=== PATIENT | female | born 1940 | race Caucasian/White ===

== ENCOUNTER 2017-06-27 17:52 | Emergency (ER) | payer MEDICARE, OTHER ==
[~2017-06-27] VITALS: Ht 185.4 cm; Wt 81.6 kg
[~2017-06-27 17:52] MED LIST: ASPI-231 PO; ESOM20CA PO; METO50TA7 PO; MULTTAB61 PO; ROSU10TA16 PO; SULF-35 PO; VEN75XRT PO
[2017-06-27 19:45] VITALS: BP 117/76
[2017-06-27] MEDS ORDERED: KETOROLAC TROMETH 30 MG/ML 1ML VIAL IM ONE (19:45)
[2017-06-27] MEDS ORDERED: KETOROLAC TROMETH 30 MG/ML 1ML VIAL IV ONE (19:45)
[2017-06-27] MEDS ORDERED: HYDROcodone-ACET 5/325MG TAB PO ONE (19:45)
[2017-06-27] MEDS ORDERED: KETOROLAC TROMETH 30 MG/ML 1ML VIAL ONE (19:48)
[2017-06-27] MEDS ORDERED: HYDROcodone-ACET 5/325MG TAB ONE (19:48)
== END 2017-06-27 21:35 | disposition home or self-care (01) ==
LOC: EDBD 17:52 → ER 18:03
DX: S52.591A Other fractures of lower end of right radius, initial encounter for closed fracture (principal); I10 Essential (primary) hypertension; K21.9 Gastro-esophageal reflux disease without esophagitis; F41.9 Anxiety disorder, unspecified; E78.5 Hyperlipidemia, unspecified; W19.XXXA Unspecified fall, initial encounter; Y93.89 Activity, other specified; Y92.89 Other specified places as the place of occurrence of the external cause; Y99.8 Other external cause status; Z79.82 Long term (current) use of aspirin; Z88.1 Allergy status to other antibiotic agents; Z88.2 Allergy status to sulfonamides
CPT/HCPCS: 29125; 73110; 96374; 99284; J1885

== ENCOUNTER 2017-06-30 08:44 | Emergency (ER) | payer MEDICARE, OTHER ==
[~2017-06-30] VITALS: Ht 185.4 cm; Wt 106.6 kg
[2017-06-30 10:45] VITALS: BP 122/74
== END 2017-06-30 11:08 | disposition home or self-care (01) ==
LOC: ER 08:44
DX: S40.012A Contusion of left shoulder, initial encounter (principal); K21.9 Gastro-esophageal reflux disease without esophagitis; I10 Essential (primary) hypertension; E78.5 Hyperlipidemia, unspecified; Z88.1 Allergy status to other antibiotic agents; Z88.2 Allergy status to sulfonamides; Z79.82 Long term (current) use of aspirin; W19.XXXA Unspecified fall, initial encounter; Y93.89 Activity, other specified; Y92.481 Parking lot as the place of occurrence of the external cause; Y99.8 Other external cause status
CPT/HCPCS: 73030; 93005

== ENCOUNTER → 2017-06-30 | Outpatient (CLI) | payer MEDICARE, OTHER ==
[2017-06-30 09:20] LABS: Basophils # (auto) 0.1 uL; Eosinophils # (auto) 0.1 uL; Eosinophils % (auto) 1.4 % (0.0-7.0); Hematocrit 40.2 % (36.0-46.0); Hemoglobin 13.5 g/dL (12.2-16.2); Lymphocytes # (auto) 1.2 uL; Lymphocytes % (auto) 18.1 % (10.0-50.0); Mean Corpuscular Hemoglobin 31.4 pg (28.0-32.0); Mean Corpuscular Hgb Conc. 33.5 g/dL (32.0-36.0); Mean Corpuscular Volume 93.9 fL (80.0-100.0); Monocytes # (auto) 0.5 uL; Monocytes % (auto) 7.9 % (0.0-12.0); Neutrophils # (auto) 4.6 uL; Neutrophils % (auto) 71.6 % (37.0-80.0); Platelet Count (auto) 221 10^3/uL (140-450); Red Blood Cells 4.28 10^6/uL (4.0-5.20); Red Cell Distribution Width 13.4 % (11.8-14.3); White Blood Cell 6.5 10^3/uL (4.4-10.8)
[2017-06-30 09:33] LABS: INR 1.04 (0.9-1.15); Partial Thromboplastin Time 28.4 sec (22.64-33.71); Prothrombin Time 11.3 sec (9.37-12.3)
[2017-06-30 09:37] LABS: Albumin 3.3 g/dL (3.4-5.0); BUN/Creatinine Ratio 23.3; Bilirubin, Total 0.3 mg/dL (0.2-1.0); Calcium 8.6 mg/dL (8.5-10.1); Potassium 3.8 mmol/L (3.5-5.1); Total Protein 7.1 g/dL (6.4-8.2)
[2017-06-30 10:31] LABS: Urine Bacteria FEW /hpf (None Seen); Urine Blood Negative /uL (Negative); Urine Mucus FEW (None Seen); Urine Specific Gravity 1.022 (1.001-1.035); Urine WBC 36 /hpf (0 - 5)
== END | disposition home or self-care (01) ==
LOC: LAB 08:31
PROVIDERS: ATTEND Orthopaedic Surgery
DX: S52.591A Other fractures of lower end of right radius, initial encounter for closed fracture (principal); Z79.01 Long term (current) use of anticoagulants; X58.XXXA Exposure to other specified factors, initial encounter; Y93.89 Activity, other specified; Y92.89 Other specified places as the place of occurrence of the external cause; Y99.8 Other external cause status
CPT/HCPCS: 36415; 80053; 81001; 85025; 85610; 85730

== ENCOUNTER 2018-02-19 20:21 | Inpatient (IN) | payer MEDICARE, OTHER ==
[~2018-02-19] VITALS: Ht 185.4 cm; Wt 112.5 kg
[~2018-02-19 20:21] MED LIST changes: +MET5XLT PO; -METO50TA7 PO
[2018-02-19] MEDS ORDERED: HYDROcodone-ACET 10/325MG TAB PO ONE (22:45)
[2018-02-19 22:54] LABS: Basophils # (auto) 0.1 uL; Basophils % (auto) 0.6 % (0.0-2.0); Eosinophils # (auto) 0 uL; Eosinophils % (auto) 0.2 % (0.0-7.0); Hematocrit 45.4 % (36.0-46.0); Hemoglobin 14.7 g/dL (12.2-16.2); Lymphocytes # (auto) 1.1 uL; Lymphocytes % (auto) 7.2 % (10.0-50.0); Mean Corpuscular Hemoglobin 30.4 pg (28.0-32.0); Mean Corpuscular Hgb Conc. 32.5 g/dL (32.0-36.0); Mean Corpuscular Volume 93.7 fL (80.0-100.0); Monocytes # (auto) 0.7 uL; Neutrophils # (auto) 12.6 uL; Platelet Count (auto) 216 10^3/uL (140-450); Red Blood Cells 4.84 10^6/uL (4.0-5.20); Red Cell Distribution Width 13.9 % (11.8-14.3); White Blood Cell 14.5 10^3/uL (4.4-10.8)
[2018-02-19 23:10] LABS: Alanine Aminotransferase 26 U/L (13-56); Albumin 3.4 g/dL (3.4-5.0); Anion Gap 10 (5-15); Aspartate Aminotransferase 21 U/L (15-37); Blood Urea Nitrogen 18 mg/dL (7-18); Calcium 8.6 mg/dL (8.5-10.1); Carbon Dioxide 25 mmol/L (21-32); Chloride 107 mmol/L (98-107); GFR African American 87 mL/min; GFR Non-African American 72 mL/min; Glucose 96 mg/dL (74-106); Potassium 3.8 mmol/L (3.5-5.1); Sodium 142 mmol/L (136-145)
[2018-02-19 23:19] LABS: Alkaline Phosphatase 96 U/L (45-117); Bilirubin, Total 0.5 mg/dL (0.2-1.0); Total Protein 7.4 g/dL (6.4-8.2)
[2018-02-20] MEDS ORDERED: MEPERIDINE HCL (50 MG/ML) 1 ML VIAL IV ONE ×2 (00:15→05:45)
[2018-02-20] MEDS ORDERED: ONDANSETRON HCL 4 MG/2 ML VIAL IV ONE (00:15)
[2018-02-20] MEDS ORDERED: IOHEXOL 300 MG/ML 100ML BOTTLE IJ ONE (04:27)
[2018-02-20] MEDS ORDERED: LORazepam 2MG/ML-1ML VIAL IV ONE (05:00)
[2018-02-20] MEDS ORDERED: diphenhdrAMINE HCL 50 MG/1 ML VL IV ONE (05:00)
[2018-02-20] MEDS: SODIUM CHLORIDE 0.9% 1,000 ML IV SCH ×2 (08:11→21:45)
[2018-02-20] MEDS ORDERED: MORPHINE SULF INJ 2 MG/ML SYRINGE 1ML IV PRN (08:15)
[2018-02-20] MEDS ORDERED: LORazepam 0.5 MG TAB PO PRN (08:15)
[2018-02-20] MEDS ORDERED: LACTULOSE 20Gm/30ML SOLN PO PRN (08:15)
[2018-02-20] MEDS ORDERED: NITROGLYCERIN 0.4 MG SL TAB SL PRN (08:15)
[2018-02-20] MEDS ORDERED: HYDROcodone-ACET 5/325MG TAB PO PRN (08:15)
[2018-02-20] MEDS ORDERED: PROMETHAZINE HCL 25 MG/ML 1ML IV PRN (08:15)
[2018-02-20] MEDS ORDERED: ACETAMINOPHEN 500 MG TAB PO PRN (08:15)
[2018-02-20] MEDS ORDERED: METOPROLOL SUCCINATE XL 50 MG TAB PO SCH (10:00)
[2018-02-20] MEDS ORDERED: PATIENTS OWN MEDICATION (Rosuvastatin Calcium (Crestor) 1 TAB) PO SCH (10:00)
[2018-02-20] MEDS ORDERED: PATIENTS OWN MEDICATION (Venlafaxine Hydrochloride (Effexor Xr) 1 CAP) PO SCH (10:00)
[2018-02-20] MEDS: MORPHINE SULFATE 4 MG/ML SYR/VIAL IV PRN ×3 (10:05→21:46)
[2018-02-20 10:30] VITALS: BP 104/58
[2018-02-20 10:44] VITALS: BP 104/58
[2018-02-20] MEDS: VENLAFAXINE HCL 37.5mg XR cap PO SCH (11:00)
[2018-02-20] MEDS ORDERED: RIVA20TA PO (11:00)
[2018-02-20] MEDS ORDERED: METO25TA62 PO (11:00)
[2018-02-20] MEDS ORDERED: ATOR10TA52 PO (11:00)
[2018-02-20] MEDS: MULTIPLE VITAMIN TAB PO SCH (11:00)
[2018-02-20] MEDS: PANTOPRAZOLE 40 MG TAB PO SCH (11:00)
[2018-02-20 13:00] VITALS: BP 109/47
[2018-02-20 17:00] VITALS: BP 140/67
[2018-02-20 20:28] LABS: INR 1.05 (0.9-1.15); Partial Thromboplastin Time 31.7 sec (23.78-33.04); Prothrombin Time 11.2 sec (9.27-12.13)
[2018-02-20] MEDS: ATORVASTATIN 20 MG TAB PO SCH (21:45)
[2018-02-21] MEDS: MORPHINE SULFATE 4 MG/ML SYR/VIAL IV PRN (02:40)
[2018-02-21] MEDS: SODIUM CHLORIDE 0.9% 1,000 ML IV SCH ×2 (04:11→08:50)
[2018-02-21 05:00] VITALS: BP 122/64
[2018-02-21 06:09] LABS: Basophils # (auto) 0.1 uL; Basophils % (auto) 0.8 % (0.0-2.0); Eosinophils # (auto) 0.1 uL; Eosinophils % (auto) 0.7 % (0.0-7.0); Hematocrit 37.1 % (36.0-46.0); Hemoglobin 12.7 g/dL (12.2-16.2); Lymphocytes # (auto) 1.1 uL; Lymphocytes % (auto) 14.7 % (10.0-50.0); Mean Corpuscular Hemoglobin 32.2 pg (28.0-32.0); Mean Corpuscular Hgb Conc. 34.2 g/dL (32.0-36.0); Mean Corpuscular Volume 94.3 fL (80.0-100.0); Monocytes # (auto) 0.7 uL; Monocytes % (auto) 9.9 % (0.0-12.0); Neutrophils # (auto) 5.3 uL; Neutrophils % (auto) 73.9 % (37.0-80.0); Platelet Count (auto) 173 10^3/uL (140-450); Red Blood Cells 3.93 10^6/uL (4.0-5.20); Red Cell Distribution Width 13.9 % (11.8-14.3); White Blood Cell 7.2 10^3/uL (4.4-10.8)
[2018-02-21 06:22] LABS: INR 1.04 (0.9-1.15); Partial Thromboplastin Time 31.5 sec (23.78-33.04); Prothrombin Time 11.1 sec (9.27-12.13)
[2018-02-21 06:31] LABS: Albumin 2.5 g/dL (3.4-5.0); BUN/Creatinine Ratio 16.4; Calcium 7.7 mg/dL (8.5-10.1); Potassium 4.1 mmol/L (3.5-5.1)
[2018-02-21 06:33] LABS: Bilirubin, Total 0.9 mg/dL (0.2-1.0); Total Protein 5.7 g/dL (6.4-8.2)
[2018-02-21 09:00] VITALS: BP 109/58
[2018-02-21] MEDS: MULTIPLE VITAMIN TAB PO SCH (10:47)
[2018-02-21] MEDS: VENLAFAXINE HCL 37.5mg XR cap PO SCH (10:47)
[2018-02-21] MEDS: PANTOPRAZOLE 40 MG TAB PO SCH (10:47)
[2018-02-21] MEDS ORDERED: FUROSEMIDE 20 MG/2 ML VIAL IV ONE (11:30)
[2018-02-21] MEDS ORDERED: POTASSIUM CHL 10 Meq TABLET PO ONE (11:30)
[2018-02-21 11:56] LABS: INR 1.04 (0.9-1.15); Partial Thromboplastin Time 32.1 sec (23.78-33.04); Prothrombin Time 11.1 sec (9.27-12.13)
[2018-02-21 13:00] VITALS: BP 115/66
[2018-02-21 17:00] VITALS: BP 117/64
[2018-02-21] MEDS: MORPHINE SULF INJ 2 MG/ML SYRINGE 1ML IV PRN (20:21)
[2018-02-21] MEDS: ATORVASTATIN 20 MG TAB PO SCH (20:21)
[2018-02-21 22:00] VITALS: BP 122/68
[2018-02-21] MEDS: TEMAZEPAM 15 MG CAP PO PRN (22:00)
[2018-02-22] MEDS: MORPHINE SULF INJ 2 MG/ML SYRINGE 1ML IV PRN ×4 (01:42→22:02)
[2018-02-22 05:46] VITALS: BP 134/71
[2018-02-22 08:00] VITALS: BP 137/73
[2018-02-22] MEDS: VENLAFAXINE HCL 37.5mg XR cap PO SCH (10:28)
[2018-02-22] MEDS: MULTIPLE VITAMIN TAB PO SCH (10:29)
[2018-02-22] MEDS: PANTOPRAZOLE 40 MG TAB PO SCH (10:29)
[2018-02-22 13:00] VITALS: BP 132/72
[2018-02-22] MEDS ORDERED: diphenhdrAMINE HCL 50 MG/1 ML VL IV PRN (15:15)
[2018-02-22 17:00] VITALS: BP 118/77
[2018-02-22 22:00] VITALS: BP 122/65
[2018-02-22] MEDS: TEMAZEPAM 15 MG CAP PO PRN (22:02)
[2018-02-22] MEDS: ATORVASTATIN 20 MG TAB PO SCH (22:02)
[2018-02-23] MEDS: MORPHINE SULF INJ 2 MG/ML SYRINGE 1ML IV PRN ×2 (04:27→14:17)
[2018-02-23 05:38] VITALS: BP 137/78
[2018-02-23 08:55] VITALS: BP 114/68
[2018-02-23] MEDS: VENLAFAXINE HCL 37.5mg XR cap PO SCH (09:45)
[2018-02-23] MEDS: MULTIPLE VITAMIN TAB PO SCH (09:45)
[2018-02-23] MEDS: PANTOPRAZOLE 40 MG TAB PO SCH (09:45)
[2018-02-23 11:53] VITALS: BP 100/56
== END 2018-02-23 15:30 | DRG 965 ==
LOC: ER 20:21 → TELE 20:22 → TELE-CENTR 02-20 10:28
PROVIDERS: ADMIT Internal Medicine; ATTEND Family Medicine
DX: S32.591A Other specified fracture of right pubis, initial encounter for closed fracture (principal); S36.892A Contusion of other intra-abdominal organs, initial encounter; E66.9 Obesity, unspecified; E89.0 Postprocedural hypothyroidism; E78.5 Hyperlipidemia, unspecified; F41.9 Anxiety disorder, unspecified; I10 Essential (primary) hypertension; I34.1 Nonrheumatic mitral (valve) prolapse; I45.10 Unspecified right bundle-branch block; I48.0 Paroxysmal atrial fibrillation; K21.9 Gastro-esophageal reflux disease without esophagitis; W18.39XA Other fall on same level, initial encounter; Y92.89 Other specified places as the place of occurrence of the external cause; M16.11 Unilateral primary osteoarthritis, right hip; Y93.89 Activity, other specified; Z82.49 Family history of ischemic heart disease and other diseases of the circulatory system; Z85.3 Personal history of malignant neoplasm of breast; Z79.899 Other long term (current) drug therapy; Z90.49 Acquired absence of other specified parts of digestive tract; Z88.2 Allergy status to sulfonamides; Z88.1 Allergy status to other antibiotic agents; Z79.82 Long term (current) use of aspirin; Z68.32 Body mass index [BMI] 32.0-32.9, adult
CPT/HCPCS: 36415; 51702; 71045; 73700; 74177; 80053; 83880; 84443; 84484; 85025; 85610; 85730; 87086; 93005; 93306; 94761; 96361; 96374; 96375; 96376; A6257; J2405

== ENCOUNTER 2018-02-25 00:42 | Inpatient (IN) | payer MEDICARE, OTHER ==
[~2018-02-25] VITALS: Ht 185.4 cm; Wt 123.4 kg
[~2018-02-25 00:42] MED LIST changes: -ASPI-231 PO; +ATOR10TA52 PO; -ESOM20CA PO; -MET5XLT PO; +METO25TA62 PO; +RIVA20TA PO; -ROSU10TA16 PO; -SULF-35 PO
[2018-02-25 01:40] LABS: Basophils # (auto) 0.1 uL; Basophils % (auto) 0.7 % (0.0-2.0); Eosinophils # (auto) 0 uL; Eosinophils % (auto) 0.1 % (0.0-7.0); Hematocrit 39.2 % (36.0-46.0); Hemoglobin 12.9 g/dL (12.2-16.2); Lymphocytes # (auto) 0.6 uL; Lymphocytes % (auto) 6.2 % (10.0-50.0); Mean Corpuscular Hemoglobin 30.9 pg (28.0-32.0); Mean Corpuscular Volume 93.8 fL (80.0-100.0); Monocytes # (auto) 0.6 uL; Monocytes % (auto) 5.5 % (0.0-12.0); Neutrophils # (auto) 8.8 uL; Neutrophils % (auto) 87.5 % (37.0-80.0); Platelet Count (auto) 252 10^3/uL (140-450); Red Blood Cells 4.18 10^6/uL (4.0-5.20); Red Cell Distribution Width 13.6 % (11.8-14.3)
[2018-02-25 01:53] LABS: Alanine Aminotransferase 16 U/L (13-56); Albumin 2.6 g/dL (3.4-5.0); Anion Gap 12 (5-15); Aspartate Aminotransferase 17 U/L (15-37); BUN/Creatinine Ratio 26.2; Blood Urea Nitrogen 16 mg/dL (7-18); Calcium 8.1 mg/dL (8.5-10.1); Carbon Dioxide 23 mmol/L (21-32); Chloride 106 mmol/L (98-107); GFR African American 122 mL/min; GFR Non-African American 101 mL/min; Glucose 143 mg/dL (74-106); Potassium 3.7 mmol/L (3.5-5.1); Sodium 141 mmol/L (136-145)
[2018-02-25 01:58] LABS: Alkaline Phosphatase 81 U/L (45-117); Bilirubin, Total 0.9 mg/dL (0.2-1.0); Total Protein 6.5 g/dL (6.4-8.2)
[2018-02-25 02:00] LABS: INR 1.02 (0.9-1.15); Partial Thromboplastin Time 29.2 sec (23.78-33.04); Prothrombin Time 10.9 sec (9.27-12.13)
[2018-02-25] MEDS ORDERED: ONDANSETRON HCL 4 MG/2 ML VIAL IV ONE ×2 (02:15→06:30)
[2018-02-25] MEDS ORDERED: MORPHINE SULFATE 4 MG/ML SYR/VIAL IV ONE (02:15)
[2018-02-25] MEDS ORDERED: IOHEXOL 350 MG/ML 100ML IJ ONE (04:17)
[2018-02-25] MEDS ORDERED: TEMAZEPAM 15 MG CAP PO PRN (06:45)
[2018-02-25] MEDS ORDERED: ONDANSETRON HCL 4 MG/2 ML VIAL IV PRN (06:45)
[2018-02-25] MEDS ORDERED: NITROGLYCERIN 0.4 MG SL TAB SL PRN (06:45)
[2018-02-25] MEDS ORDERED: MORPHINE SULF INJ 2 MG/ML SYRINGE 1ML IV PRN (06:45)
[2018-02-25] MEDS: VENLAFAXINE HCL 37.5mg XR cap PO SCH (08:27)
[2018-02-25] MEDS: ASPirin 81 mg TAB PO SCH (08:27)
[2018-02-25] MEDS: FAMOTIDINE 20 MG TAB PO SCH ×2 (08:28→22:06)
[2018-02-25] MEDS: METOPROLOL TARTRATE 25 MG TAB PO SCH ×2 (08:28→22:06)
[2018-02-25] MEDS ORDERED: PATIENTS OWN MEDICATION (xarelto 20 MG) PO SCH (10:00)
[2018-02-25] MEDS: HYDROcodone-ACET 5/325MG TAB PO PRN ×3 (10:29→20:47)
[2018-02-25 12:21] LABS: Urine Bacteria FEW /hpf (None Seen); Urine Blood 2+ /uL (Negative); Urine Mucus FEW (None Seen); Urine Specific Gravity 1.046 (1.001-1.035); Urine WBC 354 /hpf (0 - 5)
[2018-02-25] MEDS: MEROPENEM 1gm/20ml IVPUSH 20 ML IV SCH ×2 (14:06→22:06)
[2018-02-25] MEDS: DOCUSATE SOD 100 MG CAP PO PRN (15:27)
[2018-02-25] MEDS: RIVAROXABAN 20 MG TAB PO SCH (18:12)
[2018-02-25 20:02] VITALS: BP 125/69
[2018-02-25 20:10] VITALS: BP 125/69
[2018-02-25] MEDS: ATORVASTATIN 20 MG TAB PO SCH (22:06)
[2018-02-26] MEDS ORDERED: ACET-1158 PO (04:07)
[2018-02-26] MEDS ORDERED: AMIO200T33 PO (04:08)
[2018-02-26 05:00] VITALS: BP 112/53
[2018-02-26] MEDS: MEROPENEM 1gm/20ml IVPUSH 20 ML IV SCH ×3 (05:50→21:43)
[2018-02-26 07:41] LABS: Basophils # (auto) 0.1 uL; Basophils % (auto) 0.6 % (0.0-2.0); Eosinophils # (auto) 0 uL; Eosinophils % (auto) 0.1 % (0.0-7.0); Hemoglobin 13.4 g/dL (12.2-16.2); Lymphocytes # (auto) 0.3 uL; Lymphocytes % (auto) 2.3 % (10.0-50.0); Mean Corpuscular Hemoglobin 31.7 pg (28.0-32.0); Mean Corpuscular Hgb Conc. 33.5 g/dL (32.0-36.0); Mean Corpuscular Volume 94.6 fL (80.0-100.0); Monocytes # (auto) 0.8 uL; Monocytes % (auto) 5.3 % (0.0-12.0); Neutrophils # (auto) 13.6 uL; Neutrophils % (auto) 91.7 % (37.0-80.0); Platelet Count (auto) 242 10^3/uL (140-450); Red Blood Cells 4.22 10^6/uL (4.0-5.20); Red Cell Distribution Width 13.7 % (11.8-14.3); White Blood Cell 14.8 10^3/uL (4.4-10.8)
[2018-02-26 08:00] VITALS: BP 99/54
[2018-02-26 08:00] LABS: Albumin 2.3 g/dL (3.4-5.0); BUN/Creatinine Ratio 27.3; Bilirubin, Total 1.1 mg/dL (0.2-1.0); Calcium 8.2 mg/dL (8.5-10.1); Potassium 3.5 mmol/L (3.5-5.1); Total Protein 6.3 g/dL (6.4-8.2)
[2018-02-26 08:35] VITALS: BP 99/54
[2018-02-26] MEDS: METOPROLOL TARTRATE 25 MG TAB PO SCH ×2 (10:00→21:45)
[2018-02-26] MEDS: ASPirin 81 mg TAB PO SCH (10:00)
[2018-02-26] MEDS: VENLAFAXINE HCL 37.5mg XR cap PO SCH (10:15)
[2018-02-26] MEDS: FAMOTIDINE 20 MG TAB PO SCH ×2 (10:17→21:42)
[2018-02-26] MEDS: ACETAMINOPHEN 325 MG TAB PO PRN ×2 (11:59→19:59)
[2018-02-26 12:55] VITALS: BP 118/57
[2018-02-26] MEDS ORDERED: fentaNYL CITRATE 5 ML ONE (13:17)
[2018-02-26] MEDS ORDERED: ROCURONIUM 10MG/ML 10ML VIAL IV ONE (13:17)
[2018-02-26] MEDS ORDERED: PROPOFOL 10 MG/ML 20 ML IV ONE (13:17)
[2018-02-26] MEDS ORDERED: LIDOCAINE 2% (LOCAL ANESTH.) PF 5ml SDV ONE (13:17)
[2018-02-26] MEDS ORDERED: ePHEDrine SULFATE 50 MG/ML AMP ONE (13:17)
[2018-02-26] MEDS ORDERED: ceFAZolin 1GM VL ONE (13:36)
[2018-02-26] MEDS ORDERED: LEVOFLOXACIN 500MG 100 ML IV ONE (13:38)
[2018-02-26] MEDS ORDERED: DEXAMETHASONE SOD PHOS 10MG/1ML VIAL INJ ONE (13:50)
[2018-02-26] MEDS ORDERED: ONDANSETRON HCL 4 MG/2 ML VIAL ONE (13:50)
[2018-02-26] MEDS ORDERED: METOCLOPRAMIDE HCL 5MG/ml INJ 2ml VIAL ONE (13:50)
[2018-02-26] MEDS ORDERED: GLYCOPYRROLATE 0.2 MG/ML 1ML VIAL ONE (14:24)
[2018-02-26] MEDS ORDERED: NEOSTIGMINE 1 MG/ML INJ (10mg/10ML VIAL) ONE (14:24)
[2018-02-26] MEDS ORDERED: PHENYLEPHRINE HCL 10 MG/ML VL ONE (14:28)
[2018-02-26] MEDS ORDERED: ePHEDrine SULFATE 50 MG/ML AMP IV PRN (15:00)
[2018-02-26] MEDS ORDERED: ONDANSETRON HCL 4 MG/2 ML VIAL IV ONE (15:00)
[2018-02-26] MEDS ORDERED: LABETALOL HCL 5 MG/ML 4ML SYRINGE IV PRN (15:00)
[2018-02-26] MEDS ORDERED: HYDROmorphone HCL 2 MG/ML VL IV PRN (15:00)
[2018-02-26] MEDS ORDERED: NALOXONE HCL 0.4 MG/ML VIAL IV PRN (15:00)
[2018-02-26] MEDS ORDERED: ACETAMINOPHEN IV 100 ML IV ONE (15:24)
[2018-02-26] MEDS ORDERED: ACETAMINOPHEN IV 1000 MG/100ML (10MG/ML) IV ONE (15:45)
[2018-02-26 16:02] LABS: Hematocrit 30.6 % (36.0-46.0); Hemoglobin 10.4 g/dL (12.2-16.2)
[2018-02-26] MEDS: RIVAROXABAN 20 MG TAB PO SCH (18:00)
[2018-02-26] MEDS: ATORVASTATIN 20 MG TAB PO SCH (21:42)
[2018-02-26] MEDS: HYDROcodone-ACET 5/325MG TAB PO PRN (21:43)
[2018-02-26 22:00] VITALS: BP 113/59
[2018-02-27] MEDS: HYDROcodone-ACET 5/325MG TAB PO PRN ×3 (01:48→19:48)
[2018-02-27 05:47] VITALS: BP 109/63
[2018-02-27 06:18] LABS: Basophils # (auto) 0 uL; Basophils % (auto) 0.2 % (0.0-2.0); Eosinophils # (auto) 0 uL; Hematocrit 34.6 % (36.0-46.0); Hemoglobin 11.8 g/dL (12.2-16.2); Lymphocytes # (auto) 0.4 uL; Lymphocytes % (auto) 2.9 % (10.0-50.0); Mean Corpuscular Hemoglobin 31.7 pg (28.0-32.0); Mean Corpuscular Hgb Conc. 34.2 g/dL (32.0-36.0); Mean Corpuscular Volume 92.6 fL (80.0-100.0); Monocytes # (auto) 0.8 uL; Monocytes % (auto) 5.8 % (0.0-12.0); Neutrophils # (auto) 12.1 uL; Neutrophils % (auto) 91.1 % (37.0-80.0); Platelet Count (auto) 214 10^3/uL (140-450); Red Blood Cells 3.74 10^6/uL (4.0-5.20); Red Cell Distribution Width 14.5 % (11.8-14.3); White Blood Cell 13.3 10^3/uL (4.4-10.8)
[2018-02-27] MEDS: MEROPENEM 1gm/20ml IVPUSH 20 ML IV SCH ×3 (06:18→22:22)
[2018-02-27 06:33] LABS: BUN/Creatinine Ratio 33.3; Calcium 8.1 mg/dL (8.5-10.1); Potassium 3.9 mmol/L (3.5-5.1)
[2018-02-27] MEDS ORDERED: SODIUM CHLORIDE 0.9% 1,000 ML IV ONE (07:30)
[2018-02-27] MEDS: ALBUMIN 25% 50 ML IV SCH ×3 (08:14→23:54)
[2018-02-27 08:53] VITALS: BP 124/70
[2018-02-27] MEDS ORDERED: MORPHINE SULF INJ 2 MG/ML SYRINGE 1ML ONE (08:58)
[2018-02-27] MEDS ORDERED: MORPHINE SULFATE 4 MG/ML SYR/VIAL IV PRN (09:00)
[2018-02-27] MEDS ORDERED: KETOROLAC TROMETH 30 MG/ML 1ML VIAL IV ONE (09:30)
[2018-02-27] MEDS: ASPirin 81 mg TAB PO SCH (10:48)
[2018-02-27] MEDS: METOPROLOL TARTRATE 25 MG TAB PO SCH ×2 (10:49→22:23)
[2018-02-27] MEDS: VENLAFAXINE HCL 37.5mg XR cap PO SCH (10:49)
[2018-02-27] MEDS: FAMOTIDINE 20 MG TAB PO SCH ×2 (10:49→22:22)
[2018-02-27 12:55] VITALS: BP 131/67
[2018-02-27] MEDS: MORPHINE SULF INJ 2 MG/ML SYRINGE 1ML IV PRN (13:10)
[2018-02-27 17:11] VITALS: BP 160/76
[2018-02-27] MEDS: RIVAROXABAN 20 MG TAB PO SCH (18:00)
[2018-02-27] MEDS: DOCUSATE SOD 100 MG CAP PO PRN (19:48)
[2018-02-27 21:41] VITALS: BP 140/77
[2018-02-27] MEDS: ATORVASTATIN 20 MG TAB PO SCH (22:22)
[2018-02-28] MEDS: HYDROcodone-ACET 5/325MG TAB PO PRN ×2 (02:52→10:39)
[2018-02-28 04:17] LABS: Basophils # (auto) 0 uL; Eosinophils # (auto) 0 uL; Hematocrit 32.1 % (36.0-46.0); Hemoglobin 10.6 g/dL (12.2-16.2); Lymphocytes # (auto) 0.5 uL; Mean Corpuscular Hemoglobin 30.4 pg (28.0-32.0); Mean Corpuscular Hgb Conc. 33.1 g/dL (32.0-36.0); Mean Corpuscular Volume 91.8 fL (80.0-100.0); Monocytes % (auto) 7.9 % (0.0-12.0); Neutrophils # (auto) 10.6 uL; Neutrophils % (auto) 88.1 % (37.0-80.0); Platelet Count (auto) 246 10^3/uL (140-450); Red Cell Distribution Width 14.4 % (11.8-14.3); White Blood Cell 12.1 10^3/uL (4.4-10.8)
[2018-02-28 04:38] LABS: Calcium 8.3 mg/dL (8.5-10.1); Potassium 3.7 mmol/L (3.5-5.1)
[2018-02-28 04:40] LABS: BUN/Creatinine Ratio 37.8
[2018-02-28 04:54] VITALS: BP 130/74
[2018-02-28] MEDS: MEROPENEM 1gm/20ml IVPUSH 20 ML IV SCH (07:02)
[2018-02-28 09:00] VITALS: BP 125/69
[2018-02-28] MEDS: cefTRIAXone 1GM/10ml IVPUSH 10 ML IV SCH (10:38)
[2018-02-28] MEDS: VENLAFAXINE HCL 37.5mg XR cap PO SCH (10:39)
[2018-02-28] MEDS: FAMOTIDINE 20 MG TAB PO SCH ×2 (10:39→23:00)
[2018-02-28] MEDS: ASPirin 81 mg TAB PO SCH (10:39)
[2018-02-28] MEDS: METOPROLOL TARTRATE 25 MG TAB PO SCH ×2 (10:40→23:00)
[2018-02-28 12:00] VITALS: BP 140/69
[2018-02-28 17:00] VITALS: BP 152/95
[2018-02-28] MEDS: RIVAROXABAN 20 MG TAB PO SCH (17:50)
[2018-02-28 21:41] VITALS: BP 140/80
[2018-02-28] MEDS: ATORVASTATIN 20 MG TAB PO SCH (23:00)
[2018-03-01 04:41] VITALS: BP 146/83
[2018-03-01] MEDS ORDERED: ALBUTEROL SULF 2.5 MG/0.5ML(0.5%) NEB SOLN NEB PRN (05:45)
[2018-03-01 07:09] LABS: Basophils # (auto) 0 uL; Basophils % (auto) 0.5 % (0.0-2.0); Eosinophils # (auto) 0.1 uL; Eosinophils % (auto) 1.2 % (0.0-7.0); Hemoglobin 11.3 g/dL (12.2-16.2); Lymphocytes # (auto) 1.3 uL; Lymphocytes % (auto) 16.2 % (10.0-50.0); Mean Corpuscular Hgb Conc. 33.3 g/dL (32.0-36.0); Monocytes # (auto) 0.9 uL; Monocytes % (auto) 11.7 % (0.0-12.0); Neutrophils # (auto) 5.6 uL; Neutrophils % (auto) 70.4 % (37.0-80.0); Platelet Count (auto) 290 10^3/uL (140-450); Red Blood Cells 3.66 10^6/uL (4.0-5.20); Red Cell Distribution Width 14.2 % (11.8-14.3); White Blood Cell 7.9 10^3/uL (4.4-10.8)
[2018-03-01] MEDS: ALBUTEROL SULF 2.5 MG/0.5ML(0.5%) NEB SOLN NEB SCH ×5 (08:41→22:13)
[2018-03-01] MEDS: cefTRIAXone 1GM/10ml IVPUSH 10 ML IV SCH (08:44)
[2018-03-01] MEDS: methylPREDNISolone SOD SUCC 40 MG/ML VL IV SCH ×3 (08:44→23:01)
[2018-03-01 09:00] VITALS: BP 153/85
[2018-03-01 09:47] VITALS: BP 146/81
[2018-03-01] MEDS: FAMOTIDINE 20 MG TAB PO SCH ×2 (10:00→23:02)
[2018-03-01] MEDS: ASPirin 81 mg TAB PO SCH (11:00)
[2018-03-01] MEDS: VENLAFAXINE HCL 37.5mg XR cap PO SCH (11:01)
[2018-03-01] MEDS: METOPROLOL TARTRATE 25 MG TAB PO SCH ×2 (11:02→23:02)
[2018-03-01] MEDS: AMPICILLIN INJ 1 GM in SODIUM CHL 0.9% 50 ML IV SCH ×2 (12:20→18:22)
[2018-03-01 13:00] VITALS: BP 166/106
[2018-03-01 17:00] VITALS: BP 156/81
[2018-03-01] MEDS: RIVAROXABAN 20 MG TAB PO SCH (18:23)
[2018-03-01] MEDS: MORPHINE SULF INJ 2 MG/ML SYRINGE 1ML IV PRN (23:00)
[2018-03-01] MEDS: ATORVASTATIN 20 MG TAB PO SCH (23:02)
[2018-03-02] MEDS: AMPICILLIN INJ 1 GM in SODIUM CHL 0.9% 50 ML IV SCH ×5 (00:18→23:18)
[2018-03-02] MEDS: ALBUTEROL SULF 2.5 MG/0.5ML(0.5%) NEB SOLN NEB SCH ×6 (02:38→23:07)
[2018-03-02 05:00] VITALS: BP 130/98
[2018-03-02 06:34] LABS: Basophils # (auto) 0 uL; Basophils % (auto) 0.2 % (0.0-2.0); Eosinophils # (auto) 0 uL; Hematocrit 34.5 % (36.0-46.0); Hemoglobin 11.7 g/dL (12.2-16.2); Lymphocytes # (auto) 0.5 uL; Lymphocytes % (auto) 6.5 % (10.0-50.0); Mean Corpuscular Hemoglobin 31.2 pg (28.0-32.0); Mean Corpuscular Hgb Conc. 34.1 g/dL (32.0-36.0); Mean Corpuscular Volume 91.6 fL (80.0-100.0); Monocytes # (auto) 0.5 uL; Monocytes % (auto) 6.7 % (0.0-12.0); Neutrophils # (auto) 7.1 uL; Neutrophils % (auto) 86.6 % (37.0-80.0); Nucleated Red Blood Cells % 0.1 %; Platelet Count (auto) 353 10^3/uL (140-450); Red Blood Cells 3.76 10^6/uL (4.0-5.20); Red Cell Distribution Width 14.3 % (11.8-14.3); White Blood Cell 8.1 10^3/uL (4.4-10.8)
[2018-03-02 07:03] LABS: BUN/Creatinine Ratio 38.3; Calcium 8.3 mg/dL (8.5-10.1); Potassium 3.6 mmol/L (3.5-5.1)
[2018-03-02 09:00] VITALS: BP 142/79
[2018-03-02] MEDS: VENLAFAXINE HCL 37.5mg XR cap PO SCH (09:32)
[2018-03-02] MEDS: DOCUSATE SOD 100 MG CAP PO PRN (09:32)
[2018-03-02] MEDS: ASPirin 81 mg TAB PO SCH ×2 (09:33→09:40)
[2018-03-02] MEDS: FAMOTIDINE 20 MG TAB PO SCH ×2 (09:33→23:17)
[2018-03-02] MEDS: cefTRIAXone 1GM/10ml IVPUSH 10 ML IV SCH (09:34)
[2018-03-02] MEDS: METOPROLOL TARTRATE 25 MG TAB PO SCH ×2 (09:34→23:20)
[2018-03-02] MEDS: methylPREDNISolone SOD SUCC 40 MG/ML VL IV SCH ×2 (09:34→23:17)
[2018-03-02 13:00] VITALS: BP 136/72
[2018-03-02 17:00] VITALS: BP 154/93
[2018-03-02] MEDS: RIVAROXABAN 20 MG TAB PO SCH (18:11)
[2018-03-02] MEDS: HYDROcodone-ACET 5/325MG TAB PO PRN ×2 (19:09→23:18)
[2018-03-02 22:00] VITALS: BP 151/91
[2018-03-02] MEDS: ATORVASTATIN 20 MG TAB PO SCH (23:17)
[2018-03-03] MEDS: ALBUTEROL SULF 2.5 MG/0.5ML(0.5%) NEB SOLN NEB SCH ×5 (02:34→18:30)
[2018-03-03] MEDS: HYDROcodone-ACET 5/325MG TAB PO PRN (04:09)
[2018-03-03] MEDS: AMPICILLIN INJ 1 GM in SODIUM CHL 0.9% 50 ML IV SCH ×2 (05:07→12:00)
[2018-03-03 05:30] VITALS: BP 157/86
[2018-03-03 06:20] LABS: Basophils # (auto) 0 uL; Basophils % (auto) 0.2 % (0.0-2.0); Eosinophils # (auto) 0 uL; Hematocrit 34.2 % (36.0-46.0); Hemoglobin 11.5 g/dL (12.2-16.2); Lymphocytes # (auto) 0.6 uL; Lymphocytes % (auto) 4.9 % (10.0-50.0); Mean Corpuscular Hemoglobin 30.9 pg (28.0-32.0); Mean Corpuscular Hgb Conc. 33.6 g/dL (32.0-36.0); Mean Corpuscular Volume 91.7 fL (80.0-100.0); Monocytes # (auto) 0.6 uL; Monocytes % (auto) 4.8 % (0.0-12.0); Neutrophils # (auto) 11.4 uL; Neutrophils % (auto) 90.1 % (37.0-80.0); Nucleated Red Blood Cells % 0.1 %; Platelet Count (auto) 392 10^3/uL (140-450); Red Blood Cells 3.73 10^6/uL (4.0-5.20); Red Cell Distribution Width 14.3 % (11.8-14.3); White Blood Cell 12.6 10^3/uL (4.4-10.8)
[2018-03-03 06:38] LABS: BUN/Creatinine Ratio 43.8; Calcium 8.3 mg/dL (8.5-10.1); Potassium 3.8 mmol/L (3.5-5.1)
[2018-03-03] MEDS: cefTRIAXone 1GM/10ml IVPUSH 10 ML IV SCH (08:27)
[2018-03-03 09:00] VITALS: BP 154/85
[2018-03-03] MEDS: ASPirin 81 mg TAB PO SCH (10:00)
[2018-03-03] MEDS: methylPREDNISolone SOD SUCC 40 MG/ML VL IV SCH (10:54)
[2018-03-03] MEDS: VENLAFAXINE HCL 37.5mg XR cap PO SCH (10:55)
[2018-03-03] MEDS: METOPROLOL TARTRATE 25 MG TAB PO SCH (10:55)
[2018-03-03] MEDS: FAMOTIDINE 20 MG TAB PO SCH (10:56)
[2018-03-03] MEDS ORDERED: MAGNESIUM CITRATE SOLUTION 300 ML BTL PO ONE (11:00)
[2018-03-03 13:00] VITALS: BP 157/91
[2018-03-03] MEDS ORDERED: MILK OF MAGNESIA 30ML SUSP PO SCH (13:45)
[2018-03-03 15:01] VITALS: BP 157/91
== END 2018-03-03 18:45 | DRG 853 ==
LOC: EDBD 00:42 → ER 00:46 → TELE 00:47 → TELE-WESTW 20:24
PROVIDERS: ADMIT Nurse Practitioner; ATTEND Internal Medicine
PROC: 30233N1 Transfusion of Nonautologous Red Blood Cells into Peripheral Vein, Percutaneous Approach (ICD-10-PCS; 2018-02-26)
PROC: 0FT44ZZ Resection of Gallbladder, Percutaneous Endoscopic Approach (ICD-10-PCS; principal; 2018-02-26 13:23)
DX: A41.9 Sepsis, unspecified organism (principal); K66.1 Hemoperitoneum; E43 Unspecified severe protein-calorie malnutrition; K81.0 Acute cholecystitis; N39.0 Urinary tract infection, site not specified; J98.11 Atelectasis; M19.90 Unspecified osteoarthritis, unspecified site; K21.9 Gastro-esophageal reflux disease without esophagitis; F41.9 Anxiety disorder, unspecified; E78.5 Hyperlipidemia, unspecified; R65.20 Severe sepsis without septic shock; B96.20 Unspecified Escherichia coli [E. coli] as the cause of diseases classified elsewhere; I10 Essential (primary) hypertension; E66.9 Obesity, unspecified; E89.0 Postprocedural hypothyroidism; I08.0 Rheumatic disorders of both mitral and aortic valves; I48.0 Paroxysmal atrial fibrillation; I70.0 Atherosclerosis of aorta; J45.909 Unspecified asthma, uncomplicated; K82.8 Other specified diseases of gallbladder; Z85.3 Personal history of malignant neoplasm of breast; I45.10 Unspecified right bundle-branch block; K59.00 Constipation, unspecified; Z88.1 Allergy status to other antibiotic agents; Z88.2 Allergy status to sulfonamides; Z82.49 Family history of ischemic heart disease and other diseases of the circulatory system; Z84.1 Family history of disorders of kidney and ureter; Z79.899 Other long term (current) drug therapy; Z79.82 Long term (current) use of aspirin; Z68.35 Body mass index [BMI] 35.0-35.9, adult
CPT/HCPCS: 36415; 51702; 71045; 71275; 76705; 80048; 80053; 81001; 82247; 83690; 83735; 83880; 84484; 85014; 85018; 85025; 85379; 85610; 85730; 86850; 86900; 86901; 86920; 87081; 87086; 87088; 87186; 93005; 93970; 94640; 94761; 96374; 96375; 96376; 96379; A6257; J0131; J0690; J0696; J1100; J1885; J1956; J2001; J2405; J2704

== ENCOUNTER 2023-01-27 15:44 | Emergency (ER) | payer MEDICARE, OTHER ==
[~2023-01-27] VITALS: Ht 170.2 cm; Wt 77.0 kg
[~2023-01-27 15:44] MED LIST changes: +ACET500T58 PO; +AMIO200T33 PO; +DIGO0.12 PO; -METO25TA62 PO; +METO25TA93 PO; +MULT-1018 PO; -MULTTAB61 PO; +PRIM50TA5 PO; -VEN75XRT PO; +VENL75CA3 PO
[2023-01-27 16:32] LABS: Basophils # (auto) 0.2 10 ^3/uL (0-0.2); Basophils % (auto) 2.4 % (0.0-2.0); Eosinophils # (auto) 0.1 10 ^3/uL (0-0.8); Eosinophils % (auto) 1.3 % (0.0-7.0); Hematocrit 43.8 % (36.0-46.0); Hemoglobin 14.7 g/dL (12.2-16.2); Lymphocytes # (auto) 1.6 10 ^3/uL (0.4-5.4); Lymphocytes % (auto) 24.6 % (10.0-50.0); Mean Corpuscular Hgb Conc. 33.5 g/dL (32.0-36.0); Mean Corpuscular Volume 95.3 fL (80.0-100.0); Monocytes # (auto) 0.5 10 ^3/uL (0-1.3); Monocytes % (auto) 7.9 % (0.0-12.0); Neutrophils # (auto) 4.1 10 ^3/uL (1.6-8.6); Neutrophils % (auto) 63.8 % (37.0-80.0); Nucleated Red Blood Cells % 0.2 %; Red Blood Cells 4.59 10^6/uL (4.0-5.20); Red Cell Distribution Width 13.2 % (11.8-14.3); White Blood Cell 6.4 10^3/uL (4.4-10.8)
[2023-01-27 16:42] VITALS: PULSE 70; RESP 18
[2023-01-27 16:59] LABS: Albumin 3.2 g/dL (3.4-5.0); Calcium 8.7 mg/dL (8.5-10.1); Potassium 4.2 mmol/L (3.5-5.1)
[2023-01-27 17:02] LABS: BUN/Creatinine Ratio 31.1 (10.0-20.0); Bilirubin, Total 0.4 mg/dL (0.2-1.0); Total Protein 6.1 g/dL (6.4-8.2)
[2023-01-27 19:30] VITALS: PULSE 82; RESP 15; O2SAT 94
[2023-01-27 20:00] VITALS: TEMP 98.2
[2023-01-27 21:49] LABS: Albumin 2.9 g/dL (3.4-5.0); Calcium 8.5 mg/dL (8.5-10.1); Magnesium 2.2 mg/dL (1.6-2.6); Potassium 3.9 mmol/L (3.5-5.1)
[2023-01-27 21:53] LABS: BUN/Creatinine Ratio 21.8 (10.0-20.0); Bilirubin, Total 0.4 mg/dL (0.2-1.0); Phosphorus 2.9 mg/dL (2.5-4.90); Total Protein 6.2 g/dL (6.4-8.2)
[2023-01-27 22:31] LABS: INR 1.1 (0.9-1.15); Partial Thromboplastin Time 26.6 SEC (24.5-34.5)
[2023-01-27] MEDS ORDERED: LACTATED RINGER'S 1,000 ML IV ONE (23:00)
[2023-01-27 23:43] LABS: Urine Bacteria NONE SEEN /hpf (None Seen); Urine Blood Negative /uL (Negative); Urine WBC 1 /hpf (0 - 5)
[2023-01-28 07:00] VITALS: BP 128/73; PULSE 71; RESP 12; O2SAT 98
== END 2023-01-28 07:00 | disposition home or self-care (01) ==
LOC: EDBD 15:44 → ER 15:44 → EDUNIT# 15:44 → ER 01-28 05:26
DX: R00.2 Palpitations (principal); E86.0 Dehydration; R73.9 Hyperglycemia, unspecified; F41.9 Anxiety disorder, unspecified; K21.9 Gastro-esophageal reflux disease without esophagitis; E78.5 Hyperlipidemia, unspecified; I10 Essential (primary) hypertension; Z88.1 Allergy status to other antibiotic agents; Z88.2 Allergy status to sulfonamides; Z79.899 Other long term (current) drug therapy; Z90.49 Acquired absence of other specified parts of digestive tract; Z90.89 Acquired absence of other organs; Z98.890 Other specified postprocedural states
CPT/HCPCS: 36415; 71045; 71046; 80053; 81001; 83735; 83880; 84100; 84443; 84484; 85025; 85379; 85610; 85730; 93005; 96360; 96361

== ENCOUNTER 2024-03-08 15:50 | Emergency (ER) | payer MEDICARE, OTHER ==
[~2024-03-08] VITALS: Ht 185.4 cm; Wt 86.3 kg
[2024-03-08] MEDS: SODIUM CHLORIDE 0.9% 1,000 ML IV ONE (16:15)
[2024-03-08 16:56] LABS: Basophils # (auto) 0.1 10 ^3/uL (0-0.2); Eosinophils # (auto) 0 10 ^3/uL (0-0.8); Eosinophils % (auto) 0.4 % (0.0-7.0); Lymphocytes # (auto) 1.1 10 ^3/uL (0.4-5.4); Lymphocytes % (auto) 14.2 % (10.0-50.0); Mean Corpuscular Hemoglobin 33.6 pg (28.0-32.0); Mean Corpuscular Hgb Conc. 35.8 g/dL (32.0-36.0); Mean Corpuscular Volume 94.1 fL (80.0-100.0); Monocytes # (auto) 0.5 10 ^3/uL (0-1.3); Monocytes % (auto) 6.5 % (0.0-12.0); Neutrophils # (auto) 5.9 10 ^3/uL (1.6-8.6); Neutrophils % (auto) 77.9 % (37.0-80.0); Nucleated Red Blood Cells % 0.2 %; Platelet Count (auto) 202 10^3/uL (140-450); Red Blood Cells 4.46 10^6/uL (4.0-5.20); Red Cell Distribution Width 13.9 % (11.8-14.3); White Blood Cell 7.5 10^3/uL (4.4-10.8)
[2024-03-08 17:16] LABS: Alanine Aminotransferase 13 U/L (7-40); Albumin 3.9 g/dL (3.2-4.8); Alkaline Phosphatase 81 U/L (46-116); Anion Gap 7 (5-15); Aspartate Aminotransferase 18 U/L (13-40); BUN/Creatinine Ratio 23.3 (10.0-20.0); Bilirubin, Total 0.5 mg/dL (0.2-1.0); Blood Urea Nitrogen 17 mg/dL (9-23); Calcium 9.6 mg/dL (8.7-10.4); Carbon Dioxide 23 mmol/L (20-30); Chloride 110 mmol/L (98-107); Glucose 112 mg/dL (74-106); Sodium 140 mmol/L (136-145); Total Protein 6.5 g/dL (5.7-8.2)
[2024-03-09 00:14] VITALS: PULSE 86; RESP 12; O2SAT 98
[2024-03-09 07:39] VITALS: PULSE 71; RESP 16; O2SAT 98
[2024-03-09 09:51] VITALS: BP 135/81; PULSE 64; RESP 18; TEMP 98.6; O2SAT 96
== END 2024-03-09 10:03 | disposition home or self-care (01) ==
LOC: ER 15:50 → EDBD 15:50 → ER 03-09 09:56
DX: R55 Syncope and collapse (principal); K21.9 Gastro-esophageal reflux disease without esophagitis; E78.5 Hyperlipidemia, unspecified; I10 Essential (primary) hypertension; Z88.1 Allergy status to other antibiotic agents; Z88.2 Allergy status to sulfonamides
CPT/HCPCS: 36415; 70450; 71045; 80053; 83605; 83880; 84484; 85025; 93005

== ENCOUNTER 2025-06-08 09:19 | Inpatient (IN) | payer MEDICARE, OTHER ==
[2025-06-08] VITALS (7 sets, daily range): BP systolic 126–149; BP diastolic 76–83; PULSE 71–97; RESP 13–18; TEMP 97.6–98.2; O2SAT 94–98
[~2025-06-08] VITALS: Ht 182.9 cm; Wt 109.5 kg
--- NOTE | 2025-06-08 09:59 | ED.PDOC ---
SOB-HPI HPI Comments 85 y.o female with PMHx of HTN, HLD, and CHF, presents to the ED via EMS for a chief complaint of SOB accompanied by right sided chest pain radiating to her ribs x 3 days. Patient reports taking Zofran and pain medication (unknown which type) today but has no symptomatic relief. She denies any fever, chills, palpitations, nausea or vomiting. She mentions unable to sleep on her right side. Chief Complaint: Shortness of Breath Time Seen by MD: 09:31 Primary Care Provider: CARMEN BABCOCK Reviewed notes: Nurses Notes, Pc Analyst Notes, Medications, Allergies Information Source: Patient Mode of Arrival: EMS Severity: Moderate Timing: Days (3) Duration: Since onset Context: At Rest PE Risk Factors: None History of: CHF Modifying Factors: Nothing Associated Signs and Symptoms: Chest Pain Past Medical History PAST MEDICAL HISTORY: Anxiety, Cancer, CHF, GERD, High Lipids, HTN Surgical History: Appendectomy, Hernia Repair, Thyroidectomy, Tonsillectomy DIRECTOR PRISON History: Denies all DIRECTOR PRISON Hx Family History Family History: No family hx of Heart ba Social History Smoker: Non-Smoker Alcohol: Occasionally Drugs: Denies Drug Use Lives In: Home Constitutional: denies: chills, diaphoresis, fatigue, fever, malaise, sweats, weakness, others EENTM: denies: blurred vision, double vision, ear bleeding, ear discharge, ear drainage, ear pain, ear ringing, eye pain, eye redness, hearing loss, mouth pain, mouth swelling, nasal discharge, nose bleeding, nose congestion, nose pain, photophobia, tearing, throat pain, throat swelling, voice changes, others Respiratory: reports: SOB at rest, shortness of breath, SOB with excertion; denies: cough, hemoptysis, orthopnea, stridor, wheezing, others Cardiovascular: reports: chest pain; denies: dizzy spells, diaphoresis, Dyspnea on exertion, edema, irregular heart beat, left arm pain, lightheadedness, palp itations, PND, syncope, others Gastrointestinal: denies: abdomen distended, abdominal pain, blood streaked bowels, constipated, diarrhea, dysphagia, difficulty swallowing, hematemesis, melena, nausea, poor appetite, poor fluid intake, rectal bleeding, rectal pain, vomiting, others Genitourinary: denies: abnormal vagina bleeding, burning, dyspareunia, dysuria, flank pain, frequency, hematuria, incontinence, pain, , vagina discharge, urgency, others Neurological: denies: dizziness, fainting, headache, left sided numbness, left sided weakness, numbness, paresthesia, pre-existing deficit, right sided numbness, right sided weakness, seizure, speech problems, tingling, tremors, weakness, others Musculoskeletal: denies: back pain, gout, joint pain, joint swelling, muscle pain, muscle stiffness, neck pain, others Integumetry: denies: bruises, change in color, change in hair/nails, dryness, laceration, lesions, lumps, rash, wounds, others Allergic/Immunocompromised: denies: Difficulty Healing, Frequent Infections, Hives, Itching, others Hematologic/Lymphatic: denies: anemia, blood clots, easy bleeding, easy br uising, swollen glands, others Endocrine: denies: excessive hunger, excessive sweating, excessive thirst, excessive urination, flushing, intolerance to cold, intolerance to heat, unexplained weight gain, unexplained weight loss, others Psychiatric: denies: anxiety, bipolar disorder, depression, hopeless, panic disorder, schizophrenia, sleepless, suicidal, others All Other Systems: Reviewed and Negative Physical Exam General Appearance: Moderate Distress HEENT: Normal ENT Inspection, Pharynx Normal, TMs Normal Neck: Full Range of Motion, Non-Tender, Normal, Normal Inspection Respiratory: Other (Coarse breath sounds) Cardiovascular: Irregular, No Edema, No JVD, No Murmur, No Gallop, Normal Peripheral Pulses Breast Exam: Deferred Gastrointestinal: No Organomegaly, Non Tender, No Pulsatile Mass, Normal Bowel Sounds, Soft Genitalia: Deferred Pelvic: Deferred Rectal: Deferred Extremities: No calf tenderness, Normal capillary refill, Normal inspection, Normal range of motion, Non-tender, No pedal edema Musculoskeletal : Apperance: Normal Neurologic: Alert, spotlight operator II-XII nml as Tested, No Motor Deficits, Normal Affect, Normal Mood, No Sensory Deficits Cerebellar Function: NOT DONE Reflexes: NOT DONE Skin: Dry, Normal Color, Warm Peripheral Pulses: 3+ Radial (R), 3+ Radial (L) Lymphatic: No Adenopathy Was a procedure done? Was a procedure done?: No Differential Dx Differential Diagnosis: Anxiety, Asthma, Bronchitis, Pneumonia, Respiratory Distress, URI X-Ray, Labs, Meds, VS Vital Signs Date Time Temp Pulse Resp B/P (MAP) Pulse Ox O2 Delivery O2 Flow Rate FiO2 06/08/25 10:48 97.1 71 13 109/56 (73) 95 97.1 06/08/25 10:48 71 13 95 Room Air* 0 21 06/08/25 09:26 73 06/08/25 09:19 98.5 73 20 112/69 98 98.5 Lab Test 06/08/25 11:00 06/08/25 10:05 Range/Units Urine Color Yellow Yellow Urine Clarity Cloudy H Clear Urine pH 5.5 5.0-9.0 Urine Specific [place] 1.012 1.001-1.035 Urine Protein Negative Negative Urine Ketones Negative Negative Urine Blood Negative Negative /uL Urine Nitrite 2+ H Negative Urine Bilirubin Negative Negative Urine Urobilinogen Normal Negative mg/dL Urine Leukocyte Esterase 3+ Negative /uL Urine RBC 2 0 - 4 /hpf Urine WBC Clumps Present None Seen /hpf Urine Microscopic WBC 213 H 0-5 /HPF Urine Squamous Epithelial Cells Few <5 /hpf Urine Bacteria Few H None Seen /hpf Urine Glucose Normal Normal mg/dL Urine Opiates Screen Pending Urine Fentanyl Screen Pending Urine Barbiturates Screen Pending Urine Phencyclidine Screen Pending Urine Amphetamines Screen Pending Urine Benzodiazepines Screen Pending Urine Cocaine Screen Pending Urine Cannabinoids Screen Pending White Blood Count 7.8 4.4-10.8 10^3/uL Red Blood Count 4.53 4.0-5.20 10^6/uL Hemoglobin 14.2 12.2-16.2 g/dL Hematocrit 41.7 36.0-46.0 % Mean Corpuscular Volume 92.2 80.0-100.0 fL Mean Corpuscular Hemoglobin 31.4 28.0-32.0 pg Mean Corpuscular Hemoglobin Concent 34.1 32.0-36.0 g/dL Red Cell Distribution Width 13.4 11.8-14.3 % Platelet Count 209 140-450 10^3/uL Mean Platelet Volume 8.7 6.9-10.8 fL Neutrophils (%) (Auto) 64.6 37.0-80.0 % Lymphocytes (%) (Auto) 21.9 10.0-50.0 % Monocytes (%) (Auto) 11.4 0.0-12.0 % Eosinophils (%) (Auto) 1.2 0.0-7.0 % Basophils (%) (Auto) 0.9 0.0-2.0 % Neutrophils # (Auto) 5.0 1.6-8.6 10 ^3/uL Lymphocytes # (Auto) 1.7 0.4-5.4 10 ^3/uL Monocytes # (Auto) 0.9 0-1.3 10 ^3/uL Eosinophils # (Auto) 0.1 0-0.8 10 ^3/uL Basophils # (Auto) 0.1 0-0.2 10 ^3/uL Nucleated Red Blood Cells 0.0 % D-Dimer, Quantitative 14.96 H 0.0-0.49 mg/L FEU Sodium Level 139 136-145 mmol/L Potassium Level 3.8 3.5-5.1 mmol/L Chloride Level 102 98-107 mmol/L Carbon Dioxide Level 28 20-31 mmol/L Anion Gap 9 5-15 Blood Urea Nitrogen 16 9-23 mg/dL Creatinine 0.75 0.550-1.02 mg/dL Glomerular Filtration Rate Calc 78 >90 mL/min BUN/Creatinine Ratio 21.3 H 10.0-20.0 Serum Glucose 111 H 74-106 mg/dL Hemoglobin A1c Pending Calcium Level 9.2 8.7-10.4 mg/dL Troponin I High Sensitivity 6 </=34 ng/L Thyroid Stimulating Hormone (TSH) Pending Free Thyroxine (T4) Calculated Pending Patient alert. Came in because she is having trouble breathing. Not in distress. Vitals stable. WBC within normal limits. Hemoglobin within normal limits. D-dimer elevated. CT chest pain Cardiac marker within normal limits. Continue monitoring. Time of 1ST Reevaluation: 09:56 Reevaluation 1ST: Unchanged Patient Education/Counseling: Diagnosis, Treatment, Prognosis Family Education/Counseling: No Family Present SEPSIS Sepsis Screen Date sepsis recognized/suspect: Jun 08, 2025 Time Sepsis recognized/suspect: 908 Recent Procedure: No On Antibiotic Therapy: No Respiratory Rate >20: No Heart Rate >90: No Temp<36 C (96.8 F) or >38.3 C: No SBP <90 or MAP <65 mmHG: No New Acute Mental Status Change: No Is the patient on CPAP, BIPAP,: No Physician Orders Chest Portable (11/27/25 09:54) Electrocardigram (06/08/25 10:31) Ct Angio Chest Contrast (06/08/25 11:36) Amiodarone Tablet (Cordarone Tablet) (06/09/25 10:00) Multiple Vitamin Tablet (Mvi Tab) (06/09/25 10:00) Primidone Tablet (Mysoline Tablet) (06/08/25 22:00) (Nf) Atorvastatin Calcium (06/09/25 10:00) (Nf) Metoprolol Succinate (Metoprolol Galdamez (06/08/25 22:00) (Nf) Venlafaxine Hydrochloride (Effexor (06/08/25 22:00) Enoxaparin Sodium (Lovenox) (06/08/25 22:00) Strict I & O QSHIFT (06/08/25 12:18) Daily Weight (06/08/25 12:18) Hemoglobin A1c (06/08/25 12:18) Thyroid Stimulating Hormone (06/08/25 12:18) Free T4 (Free Thyroxine) (06/08/25 12:18) Drug Screen (06/08/25 12:18) Admit (06/08/25 12:18) Code Status (06/08/25 12:18) Vital Signs .PER UNIT PROTOCOL (06/08/25 12:18) Regulatory Process Manager (06/08/25 12:18) Cardiac Diet-2gna,Lofat,Lochol (06/08/25 Lunch) Aspirin Chewable Tablet (06/09/25 10:00) Atorvastatin (Lipitor) (06/08/25 22:00) Acetaminophen Tablet (Tylenol Tablet) (06/08/25 12:30) Complete Blood Count (06/09/25 04:00) Basic Metabolic Panel (06/09/25 04:00) Magnesium (06/09/25 04:00) Lipid Panel (06/09/25 04:00) Echo 2d Mode Cardiac Dop (06/08/25 12:18) Ondansetron Hcl (Zofran) (06/08/25 12:30) Electrocardigram (06/09/25 04:00) Troponin-I Hs (06/09/25 04:00) Cardiac Rehabilitation - Outpa (06/08/25 ) Nitroglycerin Sublingual (Ntrostat Subli (06/08/25 12:30) Morphine Sulfate Injection (06/08/25 12:30) Stat Ekg For Chest Pain (06/08/25 12:18) Notify Md Of Changes From Base (06/08/25 12:18) Analyst Market Intelligence For 24 Hours (06/08/25 12:18) Emergency Dysrhythmia Protocol (06/08/25 12:18) Rhythm Strips Once Every Shift (06/08/25 12:18) Oxygen By Nasal Cannula (06/08/25 12:18) Vital Signs Date Time Temp Pulse Resp B/P (MAP) Pulse Ox O2 Delivery O2 Flow Rate FiO2 06/08/25 10:48 97.1 71 13 109/56 (73) 95 97.1 06/08/25 10:48 71 13 95 Room Air* 0 21 06/08/25 09:26 73 06/08/25 09:19 98.5 73 20 112/69 98 98.5 Laboratory Tests Test 06/08/25 10:05 White Blood Count 7.8 10^3/uL (4.4-10.8) Departure 1 Departure Time of Disposition: 11:35 Impression: Primary Impression: CHF (congestive heart failure) Qualified Codes: I50.43 - Acute on chronic combined systolic (congestive) and diastolic (congestive) heart failure Additional Impressions: Hyperglycemia Afib Qualified Codes: I48.0 - Paroxysmal atrial fibrillation Disposition: ADMITTED INPATIENT Admit to: Med Surg Condition: Guarded Critical Care Note Critical Care Time?: Yes (90 min-critical care time only) Stability Stability form required: No I personally scribed for COCO LIANG MD ([email or web address]) on 06/08/25 at 09:59. Electronically submitted by Naty Lynn ([facility]). COCO LIANG MD Jun 08, 2025 09:59
[2025-06-08 10:21] LABS: Hematocrit 41.7 % (36.0-46.0); Hemoglobin 14.2 g/dL (12.2-16.2); Mean Corpuscular Hemoglobin 31.4 pg (28.0-32.0); Mean Corpuscular Volume 92.2 fL (80.0-100.0); Nucleated Red Blood Cells % 0.0 %
--- NOTE | 2025-06-08 10:27 | DVH ---
EXAM: XY CHEST PORTABLE CLINICAL HISTORY: sob TECHNIQUE: Single AP view of the chest WID: COMPARISON: XY CHEST XRAY 1 VIEW on DOS: 03/08/24 FINDINGS: Lines and tubes: Surgical clips project over the lateral left chest. None Chest: Mild cardiomegaly and mild interstitial prominence in the lungs. Calcified plaque projects over the aortic arch. Small bilateral pleural effusions. No pneumothorax. Linear left basilar atelectasis or scarring. The osseous structures are grossly intact. IMPRESSION: 1. Mild cardiomegaly and interstitial prominence in the lungs which could be due to interstitial edema, scarring, or atypical infection. 2. Small bilateral pleural effusions.
[2025-06-08 10:28] LABS: Chloride 102 mmol/L (98-107); Potassium 3.8 mmol/L (3.5-5.1); Sodium 139 mmol/L (136-145)
[2025-06-08 10:29] LABS: Anion Gap 9 (5-15); Carbon Dioxide 28 mmol/L (20-31)
[2025-06-08 10:30] LABS: Calcium 9.2 mg/dL (8.7-10.4)
[2025-06-08 10:34] LABS: BUN/Creatinine Ratio 21.3 (10.0-20.0); Blood Urea Nitrogen 16 mg/dL (9-23)
[2025-06-08 10:36] LABS: Glucose 111 mg/dL (74-106)
[2025-06-08 12:09] LABS: Urine Protein, UAD Negative (Negative); Urine WBC Clumps PRESENT /hpf (None Seen)
--- NOTE | 2025-06-08 12:23 | DVHHP2 ---
History of Present Illness Reason for Visit: Chest pain with SOB History of Present Illness Garima Little is an 85-year-old female with past medical history of anxiety, breast cancer status post partial removal, left axillary lymph node removal, CHF, GERD, hyperlipidemia, hypertension, appendectomy, hernia repair, thyroidectomy, cholecystectomy, and tonsillectomy who presents to the ED with shortness of breath with right-sided chest pain x3 days. Patient reports the pain is 10/10 "pain" and constant in nature. She reports that medications make it better. She reports that there are no triggering factors. She reports that yesterday she took 4 Tylenol pills but does not know the dosage and that helped with the pain. Upon examination patient also complaining of right-sided flank pain. Patient also reports that she is taking Xarelto but does not know the reason why and reports that she was started on an few years ago by her PCP Dr. Breen in [place]. Patient also reports that she ambulates with a front wheel walker and has a wheelchair at home. Patient reports that she lives at home alone. Patient denies any recent trauma or injury, recent sick contacts, recent travels, recent ingestion of spoiled food, fever, chills, lightheadedness, weakness, dizziness, abdominal pain, nausea, vomiting, or diarrhea. Cardiovascular: CHF, HTN, hyperipidemia GI: GERD Psych: Anxiety Past Medical History Breast cancer status post partial left mastectomy per patient Past Surgical History: Appendectomy, Cholecystectomy, Hernia Repair, Other (Thyroidectomy, left axillary lymph node removal, partial left mastectomy), Tonsillectomy Smoke: No ALCOHOL: none Drugs: None Lives: Alone Domestic Violence: Neg Review of Systems Respiratory: Shortness of breath Cardiovascular: Chest Pain Musculoskeletal: other (Right-sided flank pain) Allergies: Coded Allergies: Azithromycin (Verified Allergy, Unknown, 02/20/14) Sulfa Antibiotics (Verified Allergy, Unknown, 02/20/14) Exam Vital Signs Vital Signs Date Time Temp Pulse Resp B/P (MAP) Pulse Ox O2 Delivery O2 Flow Rate FiO2 06/08/25 10:48 97.1 71 13 109/56 (73) 95 97.1 06/08/25 10:48 Room Air* 0 21 General Appearance: Alert, Oriented X3, Cooperative, No acute distress HEENT: Atraumatic, PERRLA, EOMI, Mucous membr. moist/pink Respiratory: Clear to auscultation, Normal air movement Cardiovascular: Regular rate, Normal S1, Normal S2 Abdominal: Normal bowel sounds, Soft Extremities: No clubbing, No cyanosis, No edema Neuro: Normal speech, Strength at 5/5 X4 ext, Normal tone, Sensation intact Psych/Mental Status: Mental status NL, Mood NL Labs/Xrays Labs Test 06/08/25 11:00 06/08/25 10:05 Range/Units Urine Color Yellow Yellow Urine Clarity Cloudy H Clear Urine pH 5.5 5.0-9.0 Urine Specific [place] 1.012 1.001-1.035 Urine Protein Negative Negative Urine Ketones Negative Negative Urine Blood Negative Negative /uL Urine Nitrite 2+ H Negative Urine Bilirubin Negative Negative Urine Urobilinogen Normal Negative mg/dL Urine Leukocyte Esterase 3+ Negative /uL Urine RBC 2 0 - 4 /hpf Urine WBC Clumps Present None Seen /hpf Urine Microscopic WBC 213 H 0-5 /HPF Urine Squamous Epithelial Cells Few <5 /hpf Urine Bacteria Few H None Seen /hpf Urine Glucose Normal Normal mg/dL White Blood Count 7.8 4.4-10.8 10^3/uL Red Blood Count 4.53 4.0-5.20 10^6/uL Hemoglobin 14.2 12.2-16.2 g/dL Hematocrit 41.7 36.0-46.0 % Mean Corpuscular Volume 92.2 80.0-100.0 fL Mean Corpuscular Hemoglobin 31.4 28.0-32.0 pg Mean Corpuscular Hemoglobin Concent 34.1 32.0-36.0 g/dL Red Cell Distribution Width 13.4 11.8-14.3 % Platelet Count 209 140-450 10^3/uL Mean Platelet Volume 8.7 6.9-10.8 fL Neutrophils (%) (Auto) 64.6 37.0-80.0 % Lymphocytes (%) (Auto) 21.9 10.0-50.0 % Monocytes (%) (Auto) 11.4 0.0-12.0 % Eosinophils (%) (Auto) 1.2 0.0-7.0 % Basophils (%) (Auto) 0.9 0.0-2.0 % Neutrophils # (Auto) 5.0 1.6-8.6 10 ^3/uL Lymphocytes # (Auto) 1.7 0.4-5.4 10 ^3/uL Monocytes # (Auto) 0.9 0-1.3 10 ^3/uL Eosinophils # (Auto) 0.1 0-0.8 10 ^3/uL Basophils # (Auto) 0.1 0-0.2 10 ^3/uL Nucleated Red Blood Cells 0.0 % D-Dimer, Quantitative 14.96 H 0.0-0.49 mg/L FEU Sodium Level 139 136-145 mmol/L Potassium Level 3.8 3.5-5.1 mmol/L Chloride Level 102 98-107 mmol/L Carbon Dioxide Level 28 20-31 mmol/L Anion Gap 9 5-15 Blood Urea Nitrogen 16 9-23 mg/dL Creatinine 0.75 0.550-1.02 mg/dL Glomerular Filtration Rate Calc 78 >90 mL/min BUN/Creatinine Ratio 21.3 H 10.0-20.0 Serum Glucose 111 H 74-106 mg/dL Calcium Level 9.2 8.7-10.4 mg/dL Troponin I High Sensitivity 6 </=34 ng/L EXAM: XY CHEST PORTABLE CLINICAL HISTORY: sob TECHNIQUE: Single AP view of the chest WID: COMPARISON: XY CHEST XRAY 1 VIEW on DOS: 03/08/24 FINDINGS: Lines and tubes: Surgical clips project over the lateral left chest. None Chest: Mild cardiomegaly and mild interstitial prominence in the lungs. Calcified plaque projects over the aortic arch. Small bilateral pleural effusions. No pneumothorax. Linear left basilar atelectasis or scarring. The osseous structures are grossly intact. IMPRESSION: 1. Mild cardiomegaly and interstitial prominence in the lungs which could be due to interstitial edema, scarring, or atypical infection. 2. Small bilateral pleural effusions. SEPSIS Sepsis Screen Date sepsis recognized/suspect: Jun 08, 2025 Time Sepsis recognized/suspect: 1048 Recent Procedure: No On Antibiotic Therapy: No Respiratory Rate >20: No Heart Rate >90: No Temp<36 C (96.8 F) or >38.3 C: No SBP <90 or MAP <65 mmHG: No New Acute Mental Status Change: No Is the patient on CPAP, BIPAP,: No Physician Orders Chest Portable (06/08/25 09:54) Electrocardigram (06/08/25 10:31) Ct Angio Chest Contrast (06/08/25 11:36) Vital Signs Date Time Temp Pulse Resp B/P (MAP) Pulse Ox O2 Delivery O2 Flow Rate FiO2 06/08/25 10:48 97.1 71 13 109/56 (73) 95 97.1 06/08/25 10:48 71 13 95 Room Air* 0 21 06/08/25 09:26 73 06/08/25 09:19 98.5 73 20 112/69 98 98.5 Laboratory Tests Test 06/08/25 10:05 White Blood Count 7.8 10^3/uL (4.4-10.8) Assessment/Plan Assessment/Plan Assessment Chest pain rule out ACS Alcohol use Mild cardiomegaly and interstitial prominence in the lungs which could be due to interstitial edema, scarring, or atypical infection Small bilateral pleural effusions UTI Intractable right-sided flank pain History of anxiety History of breast cancer status post partial removal History of CHF History of GERD History of hyperlipidemia History of hypertension History of appendectomy History of hernia repair History of thyroidectomy History of tonsillectomy History of cholecystectomy History of left axillary lymph node removal Plan Admit to tele Antiemetics Pain management Aspirin + statin Echo ordered ACS workup IV antibiotics-ceftriaxone Kidney ultrasound Last echo on 08/02/2021 Left atrial enlargement with mild aortic root enlargement.Valves appear to be structurally normal. EF of 55% with normal RV function. Diet Home medications reconciled DVT prophylaxis-SCDs PUD prophylaxis-PPIs Discussed plan of care with patient and nurse Counseled patient on cessation of alcohol use [id number] Preventive counseling healthy eating habits, physical activity, and regular checkups Plan discussed with: Patient Date of Service: Jun 08, 2025 Billing Provider: CELESTE MCKEON Common Visit Codes: [id number]-[id number] INP/OBS CARE (HIGH) Secondary Visit Codes: [id number] COUNSELING IND CELESTE MCKEON Jun 08, 2025 12:23
[2025-06-08] MEDS ORDERED: ONDANSETRON HCL 4 MG/2 ML VIAL IV PRN (12:30)
[2025-06-08] MEDS ORDERED: ACETAMINOPHEN 325 MG TAB PO PRN (12:30)
[2025-06-08] MEDS ORDERED: MORPHINE SULFATE INJ 2 MG/ml SYRG IV PRN (12:30)
[2025-06-08] MEDS ORDERED: NITROGLYCERIN 0.4 MG SL TAB SL PRN ×2 (12:30)
[2025-06-08] MEDS ORDERED: MORPHINE SULFATE 4 MG/ML SYR/VIAL IV PRN (12:30)
[2025-06-08 12:48] LABS: Barbiturate Scree,Urine Pos (NEGATIVE)
[2025-06-08 12:51] LABS: Amphetamine Screen, Urine Neg (NEGATIVE); Benzodiazephine Screen, Urine Neg (NEGATIVE); Cannabinoid Screen, Urine Neg (NEGATIVE); Cocaine Screen, Urine Neg (NEGATIVE); Opiate Scree,Urine Neg (NEGATIVE); Phencyclidine Screen, Urine Neg (NEGATIVE)
--- NOTE | 2025-06-08 16:04 | DVHSR ---
APPROVED REPORT EXAM: Two-dimensional and M-mode echocardiogram with Doppler and color Doppler. Blood Pressure: 136/56 mmHg INDICATION Chest Pain RISK FACTORS Height: 6', Weight: 180 DIMENSIONS LVDd 5.2 (3.8-5.7cm) LA (2D) 4.2 (1.9-4.0cm) Aortic Root 3.4 (2.0-3.7cm) LVDs 3.6 (2.5-4.0cm) LA (MM) (1.9-4.0cm) Aortic Cusp Exc 1.8 (1.5-2.0cm) EF (%) 58.0 (55-70%) Rt. Atrium 4.4 (1.9-4.0cm) Asc. Aorta cm IVSd 0.8 (0.7-1.1cm) RV (D) (1.8-2.4cm) PWd 0.8 (0.7-1.1cm) Mitral Valve Mitral Mitral Stenosis E/A ratio 0.0 2D MVA cm2 Aortic Valve Aortic Valve Aortic Stenosis V1 0.93m/s AO Mean GR. 4mmHg V2 1.30m/s AO Peak GR. 7mmHg LVOT Diameter 1.9 (1.8-2.4cm) Doppler BYRON 2.03cm2 Pulmonic Valve V2 0.57m/s Tricuspid Valve TR Velocity 3.88m/s RVSP 63mmHg Other Information Quality : Technically Limited Rhythm : Technically limited study due to body habitus. Conclusion lvef 55% RV enlarged moderate to severe tricuspid regurg biatrial enlargement moderate pulm htn limited study
--- NOTE | 2025-06-08 19:30 | DVH ---
Procedure: CT CT ANGIO CHEST CONTRAST Study Date and Requested Time: 06/08/2025 04:30 PM History: pe Comparison: None Dose: CTDI: 20.48 mGy DLP: 2.89 mGycm Technique: Multiplanar images of the chest are obtained with contrast. 3-D image postprocessing was performed and images were used for interpretation and reporting. Findings: Heterogeneously enlarged right thyroid lobe. Cm Pulmonary embolism involving the bilateral upper lobe, and Lingula segmental and subsegmental pulmonary arteries. Pulmonary embolism extending from the right interlobar pulmonary artery to the right middle and lower lobe segmental and subsegmental pulmonary arteries. Ectatic ascending aorta measuring up to 4 cm. Mild atherosclerotic calcification of the aorta. Minimal ground-glass opacity of the lungs which may represent mild pulmonary edema. Loss right posterior middle lobe patchy opacity. Small right-sided pleural effusion with associated atelectasis. Mild cardiomegaly. Flattening of the interventricular septum which could be seen with early strain. No significant mediastinal or hilar adenopathy. The soft tissues unremarkable. No evidence of acute osseous abnormalities. 4.5 cm right anterior renal cyst. Moderate amount of fecal material within the visualized colon. Small hiatal hernia. Impression: Pulmonary embolism involving the Bilateral upper lobe, Lingula, right middle and lower lobe segmental and subsegmental pulmonary arteries and right inter lobar pulmonary artery. There is flattening of the interventricular septum suggestive of early right heart strain. Right middle lobe patchy opacity which may represent pulmonary infarct with pneumonia not completely excluded. Small right-sided pleural effusion with associated atelectasis. Ectatic ascending aorta measuring up to 4 cm. Multiple attempts have been made to contact care team without success. An addendum will be added when able to contact team.
[2025-06-08] MEDS: ENOXAPARIN SOD 80 MG/0.8ML SYRINGE SC SCH (19:55)
--- NOTE | 2025-06-08 21:44 | DVH ---
INDICATION: right sided flank pain TECHNIQUE: Multiple real-time sonographic images of the kidneys and bladder were obtained. COMPARISON: None FINDINGS: RIGHT kidney measures 11.2 cm in length. Fairly simple appearing cyst of the right lower pole kidney measuring 3.8 cm. No stones or hydronephrosis. LEFT kidney measures 11.3 cm in length. No stones or hydronephrosis. Bladder is contracted and not well visualized. IMPRESSION: No right-sided hydronephrosis. Simple appearing right lower pole renal cysts measuring 3.8 cm. Bladder not visualized and is decompressed.
[2025-06-08] MEDS ORDERED: PATIENTS OWN MEDICATION (Venlafaxine Hydrochloride (Effexor Xr) 1 CAP) PO SCH (22:00)
[2025-06-08] MEDS ORDERED: ATORVASTATIN 20 MG TAB PO SCH (22:00)
[2025-06-08] MEDS: ATORVASTATIN 20 MG TAB PO SCH (22:27)
[2025-06-08] MEDS: PRIMIDONE 50 MG TAB PO SCH (22:27)
[2025-06-09] VITALS (7 sets, daily range): BP systolic 101–141; BP diastolic 57–84; PULSE 66–84; RESP 16–20; TEMP 97–99.1; O2SAT 91–98
[2025-06-09] MEDS: MELATONIN 5 MG TAB PO ONE (01:18)
[2025-06-09 05:44] LABS: Hematocrit 38.1 % (36.0-46.0); Hemoglobin 13.1 g/dL (12.2-16.2); Mean Corpuscular Hemoglobin 31.6 pg (28.0-32.0); Mean Corpuscular Volume 91.8 fL (80.0-100.0); Nucleated Red Blood Cells % 0.0 %
[2025-06-09 05:45] LABS: Chloride 106 mmol/L (98-107); Potassium 4.0 mmol/L (3.5-5.1); Sodium 141 mmol/L (136-145)
[2025-06-09 05:46] LABS: Anion Gap 9 (5-15); Carbon Dioxide 26 mmol/L (20-31)
[2025-06-09 05:47] LABS: Calcium 8.9 mg/dL (8.7-10.4)
[2025-06-09 05:51] LABS: Glucose 89 mg/dL (74-106); Triglycerides 62 mg/dL (< 150)
[2025-06-09 05:52] LABS: BUN/Creatinine Ratio 23.0 (10.0-20.0); Blood Urea Nitrogen 14 mg/dL (9-23); Magnesium 2.0 mg/dL (1.6-2.6)
[2025-06-09 05:53] LABS: Cholesterol 135 mg/dL (< 200); HDL Cholesterol 56 mg/dL (40-59)
[2025-06-09] MEDS: MULTIPLE VITAMIN TAB PO SCH (08:19)
[2025-06-09] MEDS: METOPROLOL SUCCINATE XL 50 MG TAB PO SCH (08:24)
[2025-06-09] MEDS: AMIODARONE HCL 200 MG TAB PO SCH (08:24)
--- NOTE | 2025-06-09 09:10 | DVHPN2 ---
Progress Note - Dictate Date Seen: Jun 09, 2025 Medical Necessity Reason Pt with a Central, PICC or Fol: No vital signs Vital Sign Date Time Temp Pulse Resp B/P (MAP) Pulse Ox O2 Delivery O2 Flow Rate FiO2 06/09/25 08:24 73 115/57 06/09/25 07:54 Room Air* 0 21 06/09/25 01:00 99.1 18 97 99.1 Total Intake and Output 06/08/25 06/08/25 06/09/25 15:00 23:00 07:00 Intake Total 390 ml 200 ml Output Total 200 ml Balance 190 ml 200 ml medications Current Medications Medications Dose Ordered Sig/Anila Route Start Time Stop Time Status Last Admin Dose Admin Amiodarone HCl 200 mg DAILY PO 06/09/25 10:00 06/09/25 08:24 200 MG Multivitamins 1 tab DAILY PO 06/09/25 10:00 06/09/25 08:19 1 TAB Primidone 50 mg BID PO 06/08/25 22:00 06/09/25 08:19 50 MG Atorvastatin Calcium 10 mg HS PO 06/08/25 22:00 06/08/25 22:27 10 MG Metoprolol Succinate 25 mg DAILY PO 06/09/25 10:00 06/09/25 08:24 25 MG Patient Own Medication 1 cap BID PO 06/08/25 22:00 Hold Enoxaparin Sodium 80 mg Q12H SC 06/08/25 20:00 06/09/25 08:18 80 MG Aspirin 81 mg DAILY PO 06/09/25 10:00 06/09/25 08:18 81 MG Acetaminophen 650 mg Q6HP PRN PO 06/08/25 12:30 Ondansetron HCl 4 mg Q4HP PRN IV 06/08/25 12:30 Nitroglycerin 0.4 mg Q5MINP PRN SL 06/08/25 12:30 Morphine Sulfate 2 mg Q30M PRN IV 06/08/25 12:30 Acetaminophen/ Hydrocodone Bitart 1 tab Q4HPRN PRN PO 06/08/25 14:30 Ceftriaxone Sodium 50 ml @ 100 mls/hr DAILY@09 IV 06/08/25 14:30 06/09/25 08:18 100 MLS/HR objective General Appearance: alert, no distress HEENT: EOMI, PERRLA, normal external inspect of ears, no icterus, no nasal drainage Neck: no carotid bruit, no jugular venous distention (JVD), no lymphadenopathy Chest: normal thorax Cardiovascular: regular rate and rhythm, no diastolic murmur, no jugular venous distention (JVD), no rub, no systolic murmur Abdominal: soft, no hepatomegaly, no mass, no splenomegaly, no tenderness Genitourinary: grossly normal external Musculoskeletal: no joint tenderness, no swelling Extremities: normal pulses, no calf tenderness, no clubbing, no cyanosis, no edema Skin: no bruising, no jaundice, no rash Neurological: alert, No focal deficit laboratory and microbiology Laboratory Tests 06/09/25 04:53 Test 06/09/25 04:53 Range/Units Serum Glucose 89 74-106 mg/dL Problem List 1. Chest pain r/t acute pulmonary embolus Monitor, cardiology consult 2. HTN Monitor, antihypertensives 3. HLD Monitor, restart cholesterol meds 4. Acute pulmonary embolus Monitor, pulmonary consult, full dose Lovenox 5. Hx breast cancer Monitor 6. Depression Monitor, psychiatry consult Assessment/Plan Subjective: Patient is awake and alert. Objective: Patient was admitted for chest pain. Patient found to have acute pulmonary embolus. Patient was started on a full dose Lovenox. Echocardiogram was done. No heart strain was noted. Patient did state to nurse that she was wanting to . Psychiatry has been consulted. Patient was updated on plan of care. Plan: Continue current treatment. Psychiatry consult. Continue full dose Lovenox. Pulmonary evaluation. Plan discussed with: Patient, Other SAMRA FORTUNE NP Jun 09, 2025 09:10
[2025-06-09] MEDS: HYDROcodone-ACET 5/325MG TAB PO PRN (10:34)
--- NOTE | 2025-06-09 12:45 | DVHINCON2 ---
Date of Service if different f: Jun 09, 2025 Time of Service: 12:15 Consultation ([facility]) Consulting Physician: Dinah Progress: Better Labs Laboratory Tests Test 06/08/25 10:05 06/08/25 11:00 06/09/25 04:53 D-Dimer, Quantitative 14.96 mg/L FEU (0.0-0.49) Hemoglobin A1c 5.6 % A1C (<5.7) Thyroid Stimulating Hormone (TSH) 3.80 uIU/mL (0.55-4.78) Free Thyroxine (T4) Calculated 1.17 ng/dL (0.89-1.76) Urine Color Yellow (Yellow) Urine Clarity Cloudy (Clear) Urine pH 5.5 (5.0-9.0) Urine Specific [employer] 1.012 (1.001-1.035) Urine Protein Negative (Negative) Urine Ketones Negative (Negative) Urine Blood Negative /uL (Negative) Urine Nitrite 2+ (Negative) Urine Bilirubin Negative (Negative) Urine Urobilinogen Normal mg/dL (Negative) Urine Leukocyte Esterase 3+ /uL (Negative) Urine RBC 2 /hpf (0 - 4) Urine WBC Clumps Present /hpf (None Seen) Urine Microscopic WBC 213 /HPF (0-5) Urine Squamous Epithelial Cells Few /hpf (<5) Urine Bacteria Few /hpf (None Seen) Urine Glucose Normal mg/dL (Normal) Urine Opiates Screen Neg (NEGATIVE) Urine Fentanyl Screen Neg (NEGATIVE) Urine Barbiturates Screen Pos (NEGATIVE) Urine Phencyclidine Screen Neg (NEGATIVE) Urine Amphetamines Screen Neg (NEGATIVE) Urine Benzodiazepines Screen Neg (NEGATIVE) Urine Cocaine Screen Neg (NEGATIVE) Urine Cannabinoids Screen Neg (NEGATIVE) White Blood Count 6.6 10^3/uL (4.4-10.8) Red Blood Count 4.14 10^6/uL (4.0-5.20) Hemoglobin 13.1 g/dL (12.2-16.2) Hematocrit 38.1 % (36.0-46.0) Mean Corpuscular Volume 91.8 fL (80.0-100.0) Mean Corpuscular Hemoglobin 31.6 pg (28.0-32.0) Mean Corpuscular Hemoglobin Concent 34.4 g/dL (32.0-36.0) Red Cell Distribution Width 13.3 % (11.8-14.3) Platelet Count 208 10^3/uL (140-450) Mean Platelet Volume 9.0 fL (6.9-10.8) Neutrophils (%) (Auto) 59.7 % (37.0-80.0) Lymphocytes (%) (Auto) 23.3 % (10.0-50.0) Monocytes (%) (Auto) 13.1 % (0.0-12.0) Eosinophils (%) (Auto) 2.7 % (0.0-7.0) Basophils (%) (Auto) 1.2 % (0.0-2.0) Neutrophils # (Auto) 4.0 10 ^3/uL (1.6-8.6) Lymphocytes # (Auto) 1.5 10 ^3/uL (0.4-5.4) Monocytes # (Auto) 0.9 10 ^3/uL (0-1.3) Eosinophils # (Auto) 0.2 10 ^3/uL (0-0.8) Basophils # (Auto) 0.1 10 ^3/uL (0-0.2) Nucleated Red Blood Cells 0.0 % Sodium Level 141 mmol/L (136-145) Potassium Level 4.0 mmol/L (3.5-5.1) Chloride Level 106 mmol/L (98-107) Carbon Dioxide Level 26 mmol/L (20-31) Anion Gap 9 (5-15) Blood Urea Nitrogen 14 mg/dL (9-23) Creatinine 0.61 mg/dL (0.550-1.02) Glomerular Filtration Rate Calc 88 mL/min (>90) BUN/Creatinine Ratio 23.0 (10.0-20.0) Serum Glucose 89 mg/dL (74-106) Calcium Level 8.9 mg/dL (8.7-10.4) Magnesium Level 2.0 mg/dL (1.6-2.6) Troponin I High Sensitivity 9 ng/L (</=34) Triglycerides Level 62 mg/dL (< 150) Cholesterol Level 135 mg/dL (< 200) LDL Cholesterol 63 mg/dL (< 100) HDL Cholesterol 56 mg/dL (40-59) Appetite: Good Appearance: Stated age Psychomotor activity: WNL Behavioral: Cooperative Eye contact: Appropriate Speech: WNL Affect: Appropriate Thought processes: Linear/Goal-directed Thought content: WNL Suicidal ideations: Absent Homicidal ideations: Absent Orientation: Person, Place, Time Memory intact: Recent Intellect: Average Abstractability: WNL Concentration: Adequate Attention: Adequate Judgement: WNL Insight: Fair Vitals Vital Signs Date Time Temp Pulse Resp B/P (MAP) Pulse Ox O2 Delivery O2 Flow Rate FiO2 06/09/25 09:00 98.9 73 20 115/57 (76) 98 98.9 06/09/25 07:54 Room Air* 0 21 Current medications Current Medications Medications Dose Ordered Sig/Anila Route Start Time Stop Time Status Last Admin Dose Admin Amiodarone HCl 200 mg DAILY PO 06/09/25 10:00 06/09/25 08:24 200 MG Multivitamins 1 tab DAILY PO 06/09/25 10:00 06/09/25 08:19 1 TAB Primidone 50 mg BID PO 06/08/25 22:00 06/09/25 08:19 50 MG Atorvastatin Calcium 10 mg HS PO 06/08/25 22:00 06/08/25 22:27 10 MG Metoprolol Succinate 25 mg DAILY PO 06/09/25 10:00 06/09/25 08:24 25 MG Patient Own Medication 1 cap BID PO 06/08/25 22:00 Hold Enoxaparin Sodium 80 mg Q12H SC 06/08/25 20:00 06/09/25 08:18 80 MG Aspirin 81 mg DAILY PO 06/09/25 10:00 06/09/25 08:18 81 MG Acetaminophen 650 mg Q6HP PRN PO 06/08/25 12:30 Ondansetron HCl 4 mg Q4HP PRN IV 06/08/25 12:30 Nitroglycerin 0.4 mg Q5MINP PRN SL 06/08/25 12:30 Morphine Sulfate 2 mg Q30M PRN IV 06/08/25 12:30 Acetaminophen/ Hydrocodone Bitart 1 tab Q4HPRN PRN PO 06/08/25 14:30 06/09/25 10:34 1 TAB Ceftriaxone Sodium 50 ml @ 100 mls/hr DAILY@09 IV 06/08/25 14:30 06/09/25 08:18 100 MLS/HR Medication adjusted: No Labs ordered: No Psychotherapy provided: No Type: Voluntary Diagnosis: [place] I : [place] II : [place] III : [place] IV : [place] V : Plan : History of Present Illness PSYCHIATRIC CONSULTATION NOTE Patient: 85-year-old single White female Reason for Consult: Evaluation of possible suicidal ideation (SI) in the setting of medical admission for SOB Setting: Telepsychiatry evaluation Location: Medical floor History of Present Illness The patient is an 85-year-old single White female with a past psychiatric history of anxiety, admitted to the medical service for treatment of SOB. Psychiatry was consulted for evaluation of possible suicidal ideation. During the telepsychiatry evaluation, the patient appeared irritable but cooperative and appropriately engaged throughout the encounter. She stated her primary concern involved medication-related issues and denied making any suicidal statements. She reported that her words were taken out of context and clarified that she has no intention of harming herself, expressing ongoing responsibility for caring for her animals at home. The patient denied suicidal ideation (SI), homicidal ideation (HI), auditory or visual hallucinations (AVH), paranoid ideation, delusions, or any other psychotic symptoms. She did not exhibit signs of responding to internal stimuli or internal preoccupation. Insight and judgment were assessed as fair. Cognitive functioning remained intact. Past Psychiatric History History of anxiety Denies past psychiatric medication trials Denies previous inpatient psychiatric admissions Denies suicide attempts Denies history of violence Substance Use History Denies current substance use Reports remote history of alcohol and THC use Family Psychiatric History Denies family history of mental illness or suicide Social / Developmental History Single; lives alone Denies access to firearms or weapons Denies service Denies history of physical, sexual, or emotional trauma Denies legal issues including probation or parole Past Medical History / Allergies Medical issues per primary team (infection see medicine list) Mental Status Examination Appearance: Elderly White female, examined via telehealth; no acute distress Behavior/Attitude: Alert, cooperative; mildly irritable Eye Contact: Good Psychomotor: No agitation or retardation Level of Consciousness: Alert and awake Orientation: Fully oriented to person, place, time, and situation Mood: Anxious Affect: Congruent, anxious Speech: Normal rate, rhythm, and volume Thought Process: Logical, linear, and goal-directed; no tangentiality, circumstantiality, or loosening of associations Thought Content: No SI, HI, hallucinations, delusions, or paranoia Perception: No evidence of responding to internal stimuli Cognition: Attention fair; memory intact Insight/Judgment: Fair Assessment This is an 85-year-old female with a history of anxiety admitted for SOB and evaluated for reported suicidal ideation. Based on the interview, there is no evidence of SI, HI, psychosis, leigh, delirium, or acute psychiatric decompensation. The patient remained calm, cooperative, oriented, and psychiatrically stable throughout assessment. She denies intent or desire to harm herself and verbalizes protective factors, including responsibility for her animals. Supportive therapy and psychoeducation were provided, including discussion of coping strategies, stress management, outpatient follow-up, and early warning signs. The patient refused psychiatric medication, which is reasonable given her current presentation and stability. She is psychiatrically stable and appropriate to continue care on the medical unit or be discharged once medically cleared. Legal Status Voluntary Diagnosis Psychiatric F41.1 Generalized Anxiety Disorder Medical Infection (per primary team see medical chart) Plan Safety Planning: Reviewed coping skills, warning signs, crisis hotline, ER return precautions, and when to seek immediate help. Case Management: Consider case management support at discharge. Medications: Patient declined medications; no acute psychiatric need identified. Psychotherapy/Education: Provided supportive therapy; discussed sleep hygiene, emotional regulation techniques, and relapse prevention. Disposition: Patient is psychiatrically stable for discharge once medically cleared. No criteria for involuntary hold. Outpatient follow-up recommended Case was discussed with the SCOUT BLUE MD Jun 09, 2025 12:45
[2025-06-09] MEDS: HYDROmorphone HCL 2 MG/ML VL/or syr IV PRN (15:41)
[2025-06-09 16:22] LABS: Hematocrit 41.0 % (36.0-46.0); Hemoglobin 13.8 g/dL (12.2-16.2); Mean Corpuscular Hemoglobin 31.2 pg (28.0-32.0); Mean Corpuscular Volume 93.1 fL (80.0-100.0); Nucleated Red Blood Cells % 0.0 %
[2025-06-09 16:35] LABS: Chloride 105 mmol/L (98-107); Potassium 4.1 mmol/L (3.5-5.1); Sodium 139 mmol/L (136-145)
[2025-06-09 16:36] LABS: Anion Gap 7 (5-15); Carbon Dioxide 27 mmol/L (20-31)
[2025-06-09 16:37] LABS: Calcium 8.9 mg/dL (8.7-10.4)
[2025-06-09 16:42] LABS: BUN/Creatinine Ratio 21.4 (10.0-20.0); Blood Urea Nitrogen 15 mg/dL (9-23); Magnesium 2.1 mg/dL (1.6-2.6)
--- NOTE | 2025-06-09 16:42 | DVH ---
CHEST RADIOGRAPH Indication: chest pain Technique: Single frontal view of the chest was obtained Comparison: XY CHEST PORTABLE on DOS: 06/08/25, XY CHEST XRAY 1 VIEW on DOS: 03/08/24, XY CHEST PORTABLE on DOS: 01/27/23 FINDINGS: Lines and Tubes: None Lungs: Mildly prominent bronchovascular markings bilaterally Pleura: No effusion. No pneumothorax. Cardiomediastinal contours: Cardiac size is the upper limits of normal. Bones: No acute osseous abnormality. IMPRESSION: 1. Findings may represent congestive failure. Correlate with the clinical setting.
[2025-06-09 16:43] LABS: Glucose 137 mg/dL (74-106)
--- NOTE | 2025-06-09 16:45 | DVH ---
Date: 06/09/2025 04:06 PM Examination: XY KUB ABDOMEN SINGLE VIEW History: chest pain Comparison: None TECHNIQUE: Frontal views of the abdomen was obtained. FINDINGS: Bowel gas pattern is unremarkable. Mild gas distention of the small bowel. Findings this time suggest ileus recommend follow-up study to exclude developing bowel obstruction. The lung bases are unremarkable. No acute osseous abnormality identified. Postop changes with a compression screw in the right femoral head. IMPRESSION: 1. Findings suggest ileus at this time suggest follow-up to exclude developing bowel obstruction. 2. Compression screw in the right proximal femur
[2025-06-09] MEDS: PANTOPRAZOLE 40 MG/10 ML VIAL INJ IV ONE (17:40)
[2025-06-10] VITALS (7 sets, daily range): BP systolic 107–141; BP diastolic 59–88; PULSE 63–110; RESP 16–19; TEMP 97.9–99.7; O2SAT 92–98
[2025-06-10] MEDS: IOHEXOL 350 MG/ML 100ML IJ ONE (05:15)
[2025-06-10] MEDS ORDERED: APIX5TAB PO (11:21)
--- NOTE | 2025-06-10 11:26 | DVHDS2 ---
Discharge Summary Date of Admission Jun 08, 2025 at 12:18 Date of Discharge: Jun 10, 2025 Labs/Diagnostic Data: Laboratory Results Test 06/09/25 17:40 06/09/25 16:01 06/09/25 04:53 06/08/25 11:00 Troponin I High Sensitivity 5 ng/L (</=34) White Blood Count 6.1 10^3/uL (4.4-10.8) Red Blood Count 4.40 10^6/uL (4.0-5.20) Hemoglobin 13.8 g/dL (12.2-16.2) Hematocrit 41.0 % (36.0-46.0) Mean Corpuscular Volume 93.1 fL (80.0-100.0) Mean Corpuscular Hemoglobin 31.2 pg (28.0-32.0) Mean Corpuscular Hemoglobin Concent 33.5 g/dL (32.0-36.0) Red Cell Distribution Width 13.3 % (11.8-14.3) Platelet Count 221 10^3/uL (140-450) Mean Platelet Volume 8.9 fL (6.9-10.8) Neutrophils (%) (Auto) 65.2 % (37.0-80.0) Lymphocytes (%) (Auto) 21.2 % (10.0-50.0) Monocytes (%) (Auto) 10.4 % (0.0-12.0) Eosinophils (%) (Auto) 2.2 % (0.0-7.0) Basophils (%) (Auto) 1.0 % (0.0-2.0) Neutrophils # (Auto) 4.0 10 ^3/uL (1.6-8.6) Lymphocytes # (Auto) 1.3 10 ^3/uL (0.4-5.4) Monocytes # (Auto) 0.6 10 ^3/uL (0-1.3) Eosinophils # (Auto) 0.1 10 ^3/uL (0-0.8) Basophils # (Auto) 0.1 10 ^3/uL (0-0.2) Nucleated Red Blood Cells 0.0 % Sodium Level 139 mmol/L (136-145) Potassium Level 4.1 mmol/L (3.5-5.1) Chloride Level 105 mmol/L (98-107) Carbon Dioxide Level 27 mmol/L (20-31) Anion Gap 7 (5-15) Blood Urea Nitrogen 15 mg/dL (9-23) Creatinine 0.70 mg/dL (0.550-1.02) Glomerular Filtration Rate Calc 85 mL/min (>90) BUN/Creatinine Ratio 21.4 (10.0-20.0) Serum Glucose 137 mg/dL (74-106) Calcium Level 8.9 mg/dL (8.7-10.4) Magnesium Level 2.1 mg/dL (1.6-2.6) B-Type Natriuretic Peptide 113.16 pg/mL (0-100) Triglycerides Level 62 mg/dL (< 150) Cholesterol Level 135 mg/dL (< 200) LDL Cholesterol 63 mg/dL (< 100) HDL Cholesterol 56 mg/dL (40-59) Urine Color Yellow (Yellow) Urine Clarity Cloudy (Clear) Urine pH 5.5 (5.0-9.0) Urine Specific [place] 1.012 (1.001-1.035) Urine Protein Negative (Negative) Urine Ketones Negative (Negative) Urine Blood Negative /uL (Negative) Urine Nitrite 2+ (Negative) Urine Bilirubin Negative (Negative) Urine Urobilinogen Normal mg/dL (Negative) Urine Leukocyte Esterase 3+ /uL (Negative) Urine RBC 2 /hpf (0 - 4) Urine WBC Clumps Present /hpf (None Seen) Urine Microscopic WBC 213 /HPF (0-5) Urine Squamous Epithelial Cells Few /hpf (<5) Urine Bacteria Few /hpf (None Seen) Urine Glucose Normal mg/dL (Normal) Urine Opiates Screen Neg (NEGATIVE) Urine Fentanyl Screen Neg (NEGATIVE) Urine Barbiturates Screen Pos (NEGATIVE) Urine Phencyclidine Screen Neg (NEGATIVE) Urine Amphetamines Screen Neg (NEGATIVE) Urine Benzodiazepines Screen Neg (NEGATIVE) Urine Cocaine Screen Neg (NEGATIVE) Urine Cannabinoids Screen Neg (NEGATIVE) Test 06/08/25 10:05 D-Dimer, Quantitative 14.96 mg/L FEU (0.0-0.49) Hemoglobin A1c 5.6 % A1C (<5.7) Thyroid Stimulating Hormone (TSH) 3.80 uIU/mL (0.55-4.78) Free Thyroxine (T4) Calculated 1.17 ng/dL (0.89-1.76) Other Laboratory Tests 11/28/25 16:01 Final Diagnosis/Problems List Chest pain r/t Acute pulmonary embolus Discharge Disposition: Home Discharge Instruct/Medications Diet: Cardiac 2g Na,low cholest Activity: No Restrictions, As Tolerated Follow Up/Referral: pcp in one week Medications: Eliquis as prescribed Scheduled Amiodarone Hcl (Amiodarone Hcl), 1 TAB PO DAILY, (Reported) Amiodarone Hcl (Amiodarone Hcl), 1 TAB PO BID Apixaban Base (Eliquis), 5 MG PO BID Apixaban Base (Eliquis), 10 MG PO BID Atorvastatin Calcium (Atorvastatin Calcium), 1 TAB PO DAILY, (Reported) Digoxin (Digoxin), 125 MCG PO DAILY Metoprolol Succinate (Metoprolol Succinate Er), 25 MG PO BID, (Reported) Multiple Vitamin (Multivitamins), 1 TAB PO DAILY, (Reported) Naloxone HCl (Narcan), 4 MG NA ONCE Primidone (Mysoline Tablet), 50 MG PO BID, (Reported) Rivaroxaban (Xarelto), 1 TAB PO QPM, (Reported) Venlafaxine Hydrochloride (Effexor Xr), 1 CAP PO BID, (Reported) Scheduled PRN Acetaminophen (Acetaminophen), 500 MG PO Q6HP PRN for MILD PAIN OR TEMP>100.4, (Reported) Hydrocodone-Acetaminophen (Hydrocodone Bitartrate/AC 10-325 mg), 1 TAB PO Q4HP PRN Discharge Statement: "Patient was advised to return to the ER or call 911 if any headaches, dizziness, shortness of breath, chest pain, abdominal pain, bleeding, fevers, or worsening of medical condition. Patient was counseled about treatment plan, medications, possible side effects, patientverbalized understanding. All questions were answered to the best of my ability. This discharge took greater then 30 minutes in planning, reviewing documentation, counseling the patient, and discussing with other team members." ASSESSMENT ASSESSMENT Assessment Chest pain r/t Acute pulmonary embolus SAMRA FORTUNE [employer] Jun 10, 2025 11:26
--- NOTE | 2025-06-10 12:40 | DVHINCON2 ---
Date of service: Jun 08, [address] andre Reason for Consultation PE History of Present Illness HPI pt is an 85 yo female, h/o breast cancer, treated with partial mastectomy and axil LN dissection, presented wtih acute onset shortness of breath and pain in the chest, unrelated to exertion, pleuritic, radiating to the back. Pt required suppl 02, CTA shows PE Home Meds Active Scripts Apixaban Base (ELIQUIS) 5 Mg Tab, 10 MG PO BID for 7 Days, #14 TAB 10MG BID X 7 DAYS THEN 5MG PO BID FOR AT LEAST 6 MONTHS FOR DVT/PE TREATMENT Prov:PUJASAMRA PAZ Derick [employer] 06/10/25 Apixaban Base (ELIQUIS) 5 Mg Tab, 5 MG PO BID for 30 Days, #60 TAB Prov:SAMRA FORTUNE [employer]ick [employer] NAV[employer] 06/10/25 Digoxin (Digoxin) 125 Mcg Tab, 125 MCG PO DAILY for 30 Days, #30 TAB Prov:NOLBERTO DOUGHERTY MD 08/05/21 Amiodarone Hcl (Amiodarone Hcl) 200 Mg Tab, 1 TAB PO BID for 30 Days, #60 TAB 1 Refill Prov:NOLBERTO DOUGHERTY MD 08/05/21 Reported Medications Primidone (MYSOLINE TABLET) 50 Mg Tb, 50 MG PO BID, TAB 08/02/21 Amiodarone Hcl (Amiodarone Hcl) 200 Mg Tab, 1 TAB PO DAILY, #90 TAB 1 Refill 02/26/18 Acetaminophen (Acetaminophen) 500 Mg Tab, 500 MG PO Q6HP PRN for MILD PAIN OR TEMP>100.4, TAB 02/26/18 Rivaroxaban (XARELTO) 20 Mg Tab, 1 TAB PO QPM, #30 TAB 5 Refills 02/20/18 Atorvastatin Calcium (ATORVASTATIN CALCIUM) 10 Mg Tab, 1 TAB PO DAILY, #30 TAB 5 Refills 02/20/18 Metoprolol Succinate (Metoprolol Succinate Er) 25 Mg Tab, 25 MG PO BID for 30 Days, MG 02/20/18 Venlafaxine Hydrochloride (Effexor Xr) 75 Mg Cap, 1 CAP PO BID, #30 CAP 1 Refill 02/20/14 Multiple Vitamin (Multivitamins) Tab, 1 TAB PO DAILY, #90 TAB 3 Refills 02/20/14 Past Medical History Cardiac: CHF, HTN Pulmonary: COPD Central Nervous System: No pertinent Hx GI: No pertinent Hx Hemotology/Oncology: No pertinent Hx Hepatobiliary: No pertinent Hx Psychiatric: No pertinent Hx Musculoskeletal: No pertinent Hx Rheumotologic: No pertinent Hx Infectious Disease: No peritnent Hx ENT: No pertinent Hx Renal/: No pertinent Hx Endocrine: No pertinent Hx Patient Family History: FH: cancer FH: chronic kidney disease G8 MOTHER, , Age: 59 Ischemic heart disease G8 FATHER, , Age: 57 Review of Systems Constitutional: Weakness Pulmonary/Respiratory: Dyspnea Cardiovascular: Chest Pain Gastrointestinal: No symptom reported Genitourinary: No symptom reported Musculoskeletal: No symptom reported Skin: No symptom reported Psychiatric: No symptom reported Endocrine: No symptom reported H&P Exam Vital Signs Vital Signs Date Time Temp Pulse Resp B/P (MAP) Pulse Ox O2 Delivery O2 Flow Rate FiO2 06/10/25 09:55 67 116/68 06/10/25 08:00 17 Room Air* 0 21 06/10/25 04:50 98.1 95 98.1 General Appeara: Well developed, Well nourished, Normal Appearance Head Exam: Normal inspection Neck Exam: Normal inspection, Non-tender, Normal alignment Eye Exam: bilateral eye Normal inspection, bilateral eye PERRL, bilateral eye EOMI Ear Exam: bilateral ear Auricle normal, bilateral ear Canal normal Nasal Exam: Normal inspection Mouth: Normal Inspection Pulmonary/Respiratory: Normal inspection, Normal breath sounds Cardiovascular/Chest: Normal inspection Peripheral Pulses: 4+ carotid (R), 4+ carotid (L) Labs/Xrays Labs Test 06/09/25 17:40 06/09/25 16:01 06/09/25 04:53 06/08/25 11:00 Range/Units Troponin I High Sensitivity 5 </=34 ng/L White Blood Count 6.1 4.4-10.8 10^3/uL Red Blood Count 4.40 4.0-5.20 10^6/uL Hemoglobin 13.8 12.2-16.2 g/dL Hematocrit 41.0 36.0-46.0 % Mean Corpuscular Volume 93.1 80.0-100.0 fL Mean Corpuscular Hemoglobin 31.2 28.0-32.0 pg Mean Corpuscular Hemoglobin Concent 33.5 32.0-36.0 g/dL Red Cell Distribution Width 13.3 11.8-14.3 % Platelet Count 221 140-450 10^3/uL Mean Platelet Volume 8.9 6.9-10.8 fL Neutrophils (%) (Auto) 65.2 37.0-80.0 % Lymphocytes (%) (Auto) 21.2 10.0-50.0 % Monocytes (%) (Auto) 10.4 0.0-12.0 % Eosinophils (%) (Auto) 2.2 0.0-7.0 % Basophils (%) (Auto) 1.0 0.0-2.0 % Neutrophils # (Auto) 4.0 1.6-8.6 10 ^3/uL Lymphocytes # (Auto) 1.3 0.4-5.4 10 ^3/uL Monocytes # (Auto) 0.6 0-1.3 10 ^3/uL Eosinophils # (Auto) 0.1 0-0.8 10 ^3/uL Basophils # (Auto) 0.1 0-0.2 10 ^3/uL Nucleated Red Blood Cells 0.0 % Sodium Level 139 136-145 mmol/L Potassium Level 4.1 3.5-5.1 mmol/L Chloride Level 105 98-107 mmol/L Carbon Dioxide Level 27 20-31 mmol/L Anion Gap 7 5-15 Blood Urea Nitrogen 15 9-23 mg/dL Creatinine 0.70 0.550-1.02 mg/dL Glomerular Filtration Rate Calc 85 >90 mL/min BUN/Creatinine Ratio 21.4 H 10.0-20.0 Serum Glucose 137 H 74-106 mg/dL Calcium Level 8.9 8.7-10.4 mg/dL Magnesium Level 2.1 1.6-2.6 mg/dL B-Type Natriuretic Peptide 113.16 0-100 pg/mL Triglycerides Level 62 < 150 mg/dL Cholesterol Level 135 < 200 mg/dL LDL Cholesterol 63 < 100 mg/dL HDL Cholesterol 56 40-59 mg/dL Urine Color Yellow Yellow Urine Clarity Cloudy H Clear Urine pH 5.5 5.0-9.0 Urine Specific [place] 1.012 1.001-1.035 Urine Protein Negative Negative Urine Ketones Negative Negative Urine Blood Negative Negative /uL Urine Nitrite 2+ H Negative Urine Bilirubin Negative Negative Urine Urobilinogen Normal Negative mg/dL Urine Leukocyte Esterase 3+ Negative /uL Urine RBC 2 0 - 4 /hpf Urine WBC Clumps Present None Seen /hpf Urine Microscopic WBC 213 H 0-5 /HPF Urine Squamous Epithelial Cells Few <5 /hpf Urine Bacteria Few H None Seen /hpf Urine Glucose Normal Normal mg/dL Urine Opiates Screen Neg NEGATIVE Urine Fentanyl Screen Neg NEGATIVE Urine Barbiturates Screen Pos NEGATIVE Urine Phencyclidine Screen Neg NEGATIVE Urine Amphetamines Screen Neg NEGATIVE Urine Benzodiazepines Screen Neg NEGATIVE Urine Cocaine Screen Neg NEGATIVE Urine Cannabinoids Screen Neg NEGATIVE Test 06/08/25 10:05 Range/Units D-Dimer, Quantitative 14.96 H 0.0-0.49 mg/L FEU Hemoglobin A1c 5.6 <5.7 % A1C Thyroid Stimulating Hormone (TSH) 3.80 0.55-4.78 uIU/mL Free Thyroxine (T4) Calculated 1.17 0.89-1.76 ng/dL Assessment/Plan Plan acute hypoxemic resp failure acute PE h/o breast cancer CT report Pulmonary embolism involving the Bilateral upper lobe, Lingula, right middle and lower lobe segmental and subsegmental pulmonary arteries and right inter lobar pulmonary artery. There is flattening of the interventricular septum suggestive of early right heart strain. Right middle lobe patchy opacity which may represent pulmonary infarct with pneumonia not completely excluded. Small right-sided pleural effusion with associated atelectasis. management plan suppl 02 titrate to 02 sats low molecular weight heparin obtain echo US lower extr doppler Plan discussed with: Patient VILMA JACOBS MD Jun 10, 2025 12:40
--- NOTE | 2025-06-10 12:44 | DVHPN2 ---
Progress Note - Dictate Date Seen: Jun 10, 2025 Medical Necessity Reason Pt with a Central, PICC or Fol: No vital signs Vital Sign Date Time Temp Pulse Resp B/P (MAP) Pulse Ox O2 Delivery O2 Flow Rate FiO2 06/10/25 09:55 67 116/68 06/10/25 08:00 17 Room Air* 0 21 06/10/25 04:50 98.1 95 98.1 Total Intake and Output 06/09/25 06/09/25 06/10/25 15:00 23:00 07:00 Intake Total 50 ml 370 ml 300 ml Output Total 225 ml Balance 50 ml 370 ml 75 ml medications Current Medications Medications Dose Ordered Sig/Anila Route Start Time Stop Time Status Last Admin Dose Admin Amiodarone HCl 200 mg DAILY PO 06/09/25 10:00 06/10/25 09:55 200 MG Multivitamins 1 tab DAILY PO 06/09/25 10:00 06/10/25 09:55 1 TAB Primidone 50 mg BID PO 06/08/25 22:00 06/10/25 10:14 50 MG Atorvastatin Calcium 10 mg HS PO 06/08/25 22:00 06/09/25 21:45 10 MG Metoprolol Succinate 25 mg DAILY PO 06/09/25 10:00 06/10/25 09:55 25 MG Patient Own Medication 1 cap BID PO 06/08/25 22:00 Hold Enoxaparin Sodium 80 mg Q12H SC 06/08/25 20:00 06/10/25 08:42 80 MG Aspirin 81 mg DAILY PO 06/09/25 10:00 06/10/25 09:55 81 MG Acetaminophen 650 mg Q6HP PRN PO 06/08/25 12:30 Ondansetron HCl 4 mg Q4HP PRN IV 06/08/25 12:30 Nitroglycerin 0.4 mg Q5MINP PRN SL 06/08/25 12:30 Morphine Sulfate 2 mg Q30M PRN IV 06/08/25 12:30 Acetaminophen/ Hydrocodone Bitart 1 tab Q4HPRN PRN PO 06/08/25 14:30 06/09/25 15:32 1 TAB Ceftriaxone Sodium 50 ml @ 100 mls/hr DAILY@09 IV 06/08/25 14:30 06/10/25 08:42 100 MLS/HR Hydromorphone HCl 1 mg Q4HPRN PRN IV 06/09/25 15:45 06/10/25 03:34 1 MG laboratory and microbiology Laboratory Tests 06/09/25 16:01 Test 06/09/25 16:01 Range/Units Serum Glucose 137 H 74-106 mg/dL Assessment/Plan acute hypoxemic resp failure acute PE h/o breast cancer pulm infarct CT report Pulmonary embolism involving the Bilateral upper lobe, Lingula, right middle and lower lobe segmental and subsegmental pulmonary arteries and right inter lobar pulmonary artery. There is flattening of the interventricular septum suggestive of early right heart strain. Right middle lobe patchy opacity which may represent pulmonary infarct with pneumonia not completely excluded. Small right-sided pleural effusion with associated atelectasis. echo: RV strain and pulm htn most likely acute on chronic clots management plan suppl 02 titrate to 02 sats low molecular weight heparin when more stable transition to eliquis life long anti-coagulation advised recommend renewed cancer surveillance (PET as out-pt) Plan discussed with: Patient, Other VILMA JACOBS MD Jun 10, 2025 12:44
[2025-06-10] MEDS ORDERED: NALO4SPR2 (13:29)
[2025-06-10] MEDS ORDERED: HYDR-4798 PO (13:29)
--- NOTE | 2025-06-10 14:18 | DVH ---
Bilateral lower extremity venous duplex Clinical History: dvt Comparison: None Technique: Duplex Doppler evaluation of the deep venous systems of both lower extremities from the common femoral veins to the popliteal veins including color Doppler and spectral/pulsed waveform analysis was performed. Findings: RIGHT SIDE: The common femoral vein demonstrates appropriate compressibility and waveform variability. There is compressibility/patency of the great saphenous vein at the proximal thigh. The femoral vein demonstrates appropriate compressibility and waveform variability. The deep femoral vein demonstrates appropriate compressibility and waveform variability. The popliteal vein demonstrates appropriate compressibility and waveform variability. There is normal compressibility at the tibioperoneal trunk. LEFT SIDE: The common femoral vein demonstrates appropriate compressibility and waveform variability. There is compressibility/patency of the great saphenous vein at the proximal thigh. The femoral vein demonstrates appropriate compressibility and waveform variability. The deep femoral vein demonstrates appropriate compressibility and waveform variability. The popliteal vein demonstrates appropriate compressibility and waveform variability. There is normal compressibility at the tibioperoneal trunk. Impression: 1. No right or left femoropopliteal venous thrombosis. 2. Limited compressibility due to patient complaint of pain.
--- NOTE | 2025-06-10 19:54 | DVHPN2 ---
Progress Note - Dictate Date Seen: Jun 10, 2025 Medical Necessity Reason Pt with a Central, PICC or Fol: No vital signs Vital Sign Date Time Temp Pulse Resp B/P (MAP) Pulse Ox O2 Delivery O2 Flow Rate FiO2 06/10/25 17:00 98.3 63 18 107/59 (75) 94 98.3 06/10/25 08:00 Room Air* 0 21 Total Intake and Output 06/09/25 06/09/25 06/10/25 15:00 23:00 07:00 Intake Total 50 ml 370 ml 300 ml Output Total 225 ml Balance 50 ml 370 ml 75 ml medications Current Medications Medications Dose Ordered Sig/Anila Route Start Time Stop Time Status Last Admin Dose Admin Amiodarone HCl 200 mg DAILY PO 06/09/25 10:00 06/10/25 09:55 200 MG Multivitamins 1 tab DAILY PO 06/09/25 10:00 06/10/25 09:55 1 TAB Primidone 50 mg BID PO 06/08/25 22:00 06/10/25 10:14 50 MG Atorvastatin Calcium 10 mg HS PO 06/08/25 22:00 06/09/25 21:45 10 MG Metoprolol Succinate 25 mg DAILY PO 06/09/25 10:00 06/10/25 09:55 25 MG Patient Own Medication 1 cap BID PO 06/08/25 22:00 Hold Enoxaparin Sodium 80 mg Q12H SC 06/08/25 20:00 06/10/25 08:42 80 MG Aspirin 81 mg DAILY PO 06/09/25 10:00 06/10/25 09:55 81 MG Acetaminophen 650 mg Q6HP PRN PO 06/08/25 12:30 Ondansetron HCl 4 mg Q4HP PRN IV 06/08/25 12:30 Nitroglycerin 0.4 mg Q5MINP PRN SL 06/08/25 12:30 Morphine Sulfate 2 mg Q30M PRN IV 06/08/25 12:30 Acetaminophen/ Hydrocodone Bitart 1 tab Q4HPRN PRN PO 06/08/25 14:30 06/09/25 15:32 1 TAB Ceftriaxone Sodium 50 ml @ 100 mls/hr DAILY@09 IV 06/08/25 14:30 06/10/25 08:42 100 MLS/HR Hydromorphone HCl 1 mg Q4HPRN PRN IV 06/09/25 15:45 06/10/25 03:34 1 MG objective General Appearance: alert, no distress HEENT: EOMI, PERRLA, normal external inspect of ears, no icterus, no nasal drainage Neck: no carotid bruit, no jugular venous distention (JVD), no lymphadenopathy Chest: normal thorax Cardiovascular: regular rate and rhythm, no diastolic murmur, no jugular venous distention (JVD), no rub, no systolic murmur Abdominal: soft, no hepatomegaly, no mass, no splenomegaly, no tenderness Genitourinary: grossly normal external Musculoskeletal: no joint tenderness, no swelling Extremities: normal pulses, no calf tenderness, no clubbing, no cyanosis, no edema Skin: no bruising, no jaundice, no rash Neurological: alert, No focal deficit laboratory and microbiology Laboratory Tests 06/09/25 16:01 Test 06/09/25 16:01 Range/Units Serum Glucose 137 H 74-106 mg/dL Problem List 1. Chest pain r/t acute pulmonary embolus Monitor, cardiology consult 2. HTN Monitor, antihypertensives 3. HLD Monitor, restart cholesterol meds 4. Acute pulmonary embolus Monitor, pulmonary consult, full dose Lovenox 5. Hx breast cancer Monitor 6. Depression Monitor, psychiatry consult Assessment/Plan Subjective Patient is awake and alert. Objective Patient was admitted for chest pain. Chest pain is related to acute pulmonary embolus. Patient was started on full dose Lovenox and echocardiogram was done. Patient is currently on room air and no acute distress. Ultrasound venous Doppler is negative for DVT. Patient had an elevated D-dimer most likely from PE. Patient initially had given comments to RN about suicidal ideation. Psychiatry was consulted and patient deemed not a risk. Patient appeared to be clear minded and able to make her own decisions. Patient was cleared for discharge today, however she stated she was unable to get into her house because her neighbor had her keys. Plan Continue current treatment. Will plan for discharge in a.m once patient can safely get in her house. Plan discussed with: Patient, Other SAMRA FORTUNE NP Jun 10, 2025 19:54
[2025-06-10] MEDS: LACTULOSE 20Gm/30ML SOLN PO SCH (21:27)
[2025-06-11 01:00] VITALS: BP 134/80; PULSE 67; RESP 16; TEMP 97.9; O2SAT 95
[2025-06-11 05:00] VITALS: BP 135/81; PULSE 82; RESP 15; TEMP 98.5; O2SAT 94
[2025-06-11 06:59] LABS: Hematocrit 39.4 % (36.0-46.0); Hemoglobin 13.6 g/dL (12.2-16.2); Mean Corpuscular Hemoglobin 31.8 pg (28.0-32.0); Mean Corpuscular Volume 91.9 fL (80.0-100.0); Nucleated Red Blood Cells % 0.1 %
[2025-06-11 07:07] LABS: Chloride 106 mmol/L (98-107); Potassium 4.3 mmol/L (3.5-5.1); Sodium 140 mmol/L (136-145)
[2025-06-11 07:08] LABS: Anion Gap 8 (5-15); Calcium 9.2 mg/dL (8.7-10.4); Carbon Dioxide 26 mmol/L (20-31)
[2025-06-11 07:13] LABS: BUN/Creatinine Ratio 17.6 (10.0-20.0); Blood Urea Nitrogen 13 mg/dL (9-23)
[2025-06-11 07:14] LABS: Glucose 117 mg/dL (74-106)
[2025-06-11 08:00] VITALS: PULSE 74
[2025-06-11 08:27] VITALS: O2SAT 97
[2025-06-11 09:00] VITALS: BP 123/81; PULSE 76; RESP 18; TEMP 98.2; O2SAT 94
--- NOTE | 2025-06-11 09:36 | DVHDS2 ---
Discharge Summary Date of Admission Jun 08, 2025 at 12:18 Date of Discharge: Jun 11, 2025 Labs/Diagnostic Data: Laboratory Results Test 06/11/25 06:46 06/09/25 17:40 06/09/25 16:01 06/09/25 15:52 White Blood Count 5.2 10^3/uL (4.4-10.8) Red Blood Count 4.29 10^6/uL (4.0-5.20) Hemoglobin 13.6 g/dL (12.2-16.2) Hematocrit 39.4 % (36.0-46.0) Mean Corpuscular Volume 91.9 fL (80.0-100.0) Mean Corpuscular Hemoglobin 31.8 pg (28.0-32.0) Mean Corpuscular Hemoglobin Concent 34.6 g/dL (32.0-36.0) Red Cell Distribution Width 13.3 % (11.8-14.3) Platelet Count 266 10^3/uL (140-450) Mean Platelet Volume 8.5 fL (6.9-10.8) Neutrophils (%) (Auto) 48.7 % (37.0-80.0) Lymphocytes (%) (Auto) 33.1 % (10.0-50.0) Monocytes (%) (Auto) 11.8 % (0.0-12.0) Eosinophils (%) (Auto) 4.8 % (0.0-7.0) Basophils (%) (Auto) 1.6 % (0.0-2.0) Neutrophils # (Auto) 2.5 10 ^3/uL (1.6-8.6) Lymphocytes # (Auto) 1.7 10 ^3/uL (0.4-5.4) Monocytes # (Auto) 0.6 10 ^3/uL (0-1.3) Eosinophils # (Auto) 0.2 10 ^3/uL (0-0.8) Basophils # (Auto) 0.1 10 ^3/uL (0-0.2) Nucleated Red Blood Cells 0.1 % Sodium Level 140 mmol/L (136-145) Potassium Level 4.3 mmol/L (3.5-5.1) Chloride Level 106 mmol/L (98-107) Carbon Dioxide Level 26 mmol/L (20-31) Anion Gap 8 (5-15) Blood Urea Nitrogen 13 mg/dL (9-23) Creatinine 0.74 mg/dL (0.550-1.02) Glomerular Filtration Rate Calc 79 mL/min (>90) BUN/Creatinine Ratio 17.6 (10.0-20.0) Serum Glucose 117 mg/dL (74-106) Calcium Level 9.2 mg/dL (8.7-10.4) Troponin I High Sensitivity 5 ng/L (</=34) Magnesium Level 2.1 mg/dL (1.6-2.6) B-Type Natriuretic Peptide 113.16 pg/mL (0-100) POC Glucose 162 mg/dl (70-106) Test 06/09/25 04:53 06/08/25 11:00 06/08/25 10:05 Triglycerides Level 62 mg/dL (< 150) Cholesterol Level 135 mg/dL (< 200) LDL Cholesterol 63 mg/dL (< 100) HDL Cholesterol 56 mg/dL (40-59) Urine Color Yellow (Yellow) Urine Clarity Cloudy (Clear) Urine pH 5.5 (5.0-9.0) Urine Specific [place] 1.012 (1.001-1.035) Urine Protein Negative (Negative) Urine Ketones Negative (Negative) Urine Blood Negative /uL (Negative) Urine Nitrite 2+ (Negative) Urine Bilirubin Negative (Negative) Urine Urobilinogen Normal mg/dL (Negative) Urine Leukocyte Esterase 3+ /uL (Negative) Urine RBC 2 /hpf (0 - 4) Urine WBC Clumps Present /hpf (None Seen) Urine Microscopic WBC 213 /HPF (0-5) Urine Squamous Epithelial Cells Few /hpf (<5) Urine Bacteria Few /hpf (None Seen) Urine Glucose Normal mg/dL (Normal) Urine Opiates Screen Neg (NEGATIVE) Urine Fentanyl Screen Neg (NEGATIVE) Urine Barbiturates Screen Pos (NEGATIVE) Urine Phencyclidine Screen Neg (NEGATIVE) Urine Amphetamines Screen Neg (NEGATIVE) Urine Benzodiazepines Screen Neg (NEGATIVE) Urine Cocaine Screen Neg (NEGATIVE) Urine Cannabinoids Screen Neg (NEGATIVE) D-Dimer, Quantitative 14.96 mg/L FEU (0.0-0.49) Hemoglobin A1c 5.6 % A1C (<5.7) Thyroid Stimulating Hormone (TSH) 3.80 uIU/mL (0.55-4.78) Free Thyroxine (T4) Calculated 1.17 ng/dL (0.89-1.76) Other Laboratory Tests 06/11/25 06:46 Brief Hx & Hospital Course: Patient was admitted for chest pain related to acute pulmonary embolus. Patient also has underlying history of hypertension, hyperlipidemia, and depression. Patient also had ultrasound done of her lumbar extremity, she was negative for DVT. Patient will continue anticoagulation for treatment of PE with Eliquis for 6 months. She was instructed to follow-up with her PCP in 1 week. Patient was on room air and in no apparent distress. Patient will need outpatient PET scan for further workup of hypercoagulable state. The patient received proper medical treatment and medications. Vital signs, Imaging and Laboratory Work was monitored daily. All consults recommendations were followed as provided. There were no complaints or new complaints upon discharge, all questions and concerns were answered. Patient was advised to return to the ER or call 911 if any headaches, dizziness, shortness of breath, chest pain, bleeding, fevers, or worsening of medical condition. Patient/Family was counseled about treatment plan, medications, possible side effects, patient verbalized understanding. All questions were answered to the best of my ability. The patient symptoms improved and they are okay to be DC. Condition at Discharge: Stable Final Diagnosis/Problems List Chest pain r/t acute pulmonary embolus HTN HLD Acute pulmonary embolus Hx breast cancer Depression Discharge Disposition: Home Discharge Instruct/Medications Diet: Cardiac 2g Na,low cholest Activity: No Restrictions, As Tolerated Follow Up/Referral: pcp in one week Medications: Eliquis as prescribed Scheduled Amiodarone Hcl (Amiodarone Hcl), 1 TAB PO DAILY, (Reported) Amiodarone Hcl (Amiodarone Hcl), 1 TAB PO BID Apixaban Base (Eliquis), 5 MG PO BID Apixaban Base (Eliquis), 10 MG PO BID Atorvastatin Calcium (Atorvastatin Calcium), 1 TAB PO DAILY, (Reported) Digoxin (Digoxin), 125 MCG PO DAILY Metoprolol Succinate (Metoprolol Succinate Er), 25 MG PO BID, (Reported) Multiple Vitamin (Multivitamins), 1 TAB PO DAILY, (Reported) Naloxone HCl (Narcan), 4 MG NA ONCE Primidone (Mysoline Tablet), 50 MG PO BID, (Reported) Rivaroxaban (Xarelto), 1 TAB PO QPM, (Reported) Venlafaxine Hydrochloride (Effexor Xr), 1 CAP PO BID, (Reported) Scheduled PRN Acetaminophen (Acetaminophen), 500 MG PO Q6HP PRN for MILD PAIN OR TEMP>100.4, (Reported) Hydrocodone-Acetaminophen (Hydrocodone Bitartrate/AC 10-325 mg), 1 TAB PO Q4HP PRN Discharge Statement: "Patient was advised to return to the ER or call 911 if any headaches, dizziness, shortness of breath, chest pain, abdominal pain, bleeding, fevers, or worsening of medical condition. Patient was counseled about treatment plan, medications, possible side effects, patientverbalized understanding. All questions were answered to the best of my ability. This discharge took greater then 30 minutes in planning, reviewing documentation, counseling the patient, and discussing with other team members." ASSESSMENT ASSESSMENT Assessment Chest pain r/t Acute pulmonary embolus SAMRA FORTUNE NP Jun 11, 2025 09:36
--- NOTE | 2025-06-11 12:10 | ECG ---
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
--- NOTE | 2025-06-11 15:18 | DVHPN2 ---
Progress Note - Dictate Date Seen: Jun 11, 2025 Medical Necessity Reason Pt with a Central, PICC or Fol: No vital signs Vital Sign Date Time Temp Pulse Resp B/P (MAP) Pulse Ox O2 Delivery O2 Flow Rate FiO2 06/11/25 09:11 76 123/81 06/11/25 09:00 98.2 18 94 98.2 06/11/25 08:27 Room Air* 0 21 Total Intake and Output 06/10/25 06/10/25 06/11/25 15:00 23:00 07:00 Intake Total 466 ml 765 ml 625 ml Output Total 875 ml 500 ml Balance 466 ml -110 ml 125 ml laboratory and microbiology Laboratory Tests 06/11/25 06:46 Test 06/11/25 06:46 Range/Units Serum Glucose 117 H 74-106 mg/dL Assessment/Plan acute hypoxemic resp failure acute PE h/o breast cancer pulm infarct patient seen and examined events low oxygen requirements on room air no acute events CT report Pulmonary embolism involving the Bilateral upper lobe, Lingula, right middle and lower lobe segmental and subsegmental pulmonary arteries and right inter lobar pulmonary artery. There is flattening of the interventricular septum suggestive of early right heart strain. Right middle lobe patchy opacity which may represent pulmonary infarct with pneumonia not completely excluded. Small right-sided pleural effusion with associated atelectasis. echo: RV strain and pulm htn most likely acute on chronic clots management plan suppl 02 titrate to 02 sats low molecular weight heparin when more stable transition to eliquis life long anti-coagulation advised recommend renewed cancer surveillance (PET as out-pt) okay to discharge from pulmonary standpoint Plan discussed with: Patient VILMA JACOBS MD Jun 11, 2025 15:18
--- NOTE | 2025-06-12 07:13 | ECG ---
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
== END 2025-06-11 12:10 | disposition home or self-care (01) | DRG 176 ==
LOC: EDBD 09:19 → ER 09:19 → OVERFLOW 12:18 → TELE-WESTW 13:29
DX: I26.99 Other pulmonary embolism without acute cor pulmonale (principal); I27.20 Pulmonary hypertension, unspecified; I50.9 Heart failure, unspecified; N39.0 Urinary tract infection, site not specified; Z79.01 Long term (current) use of anticoagulants; F32.A Depression, unspecified; J44.9 Chronic obstructive pulmonary disease, unspecified; E89.0 Postprocedural hypothyroidism; I11.0 Hypertensive heart disease with heart failure; J98.11 Atelectasis; F10.90 Alcohol use, unspecified, uncomplicated; K21.9 Gastro-esophageal reflux disease without esophagitis; F41.1 Generalized anxiety disorder; E78.5 Hyperlipidemia, unspecified; I48.91 Unspecified atrial fibrillation; R73.9 Hyperglycemia, unspecified; Z88.2 Allergy status to sulfonamides; Z90.49 Acquired absence of other specified parts of digestive tract; Z90.12 Acquired absence of left breast and nipple; Z88.1 Allergy status to other antibiotic agents; Z85.3 Personal history of malignant neoplasm of breast; Z79.899 Other long term (current) drug therapy; Z84.19 Family history of other disorders of kidney and ureter; Z82.49 Family history of ischemic heart disease and other diseases of the circulatory system
CPT/HCPCS: 36415; 71045; 71275; 74018; 76775; 80048; 80061; 80307; 81001; 82962; 83036; 83735; 83880; 84439; 84443; 84484; 85025; 85379; 93005; 93306; 93970; 99291; 99292; G0378; J2470